=== PATIENT | male | born 1945 | race Caucasian/White ===

== ENCOUNTER 2018-03-21 06:05 | Inpatient (IN) ==
[2018-03-21] MEDS ORDERED: CeFAZolin Syr 2,000MG/20 ML 2,000 MG/20 ML SYRINGE IVPB ONE (06:24)
[2018-03-21] MEDS ORDERED: Dexamethasone 4 MG/ML VIAL ONE (06:30)
[2018-03-21] MEDS ORDERED: Lidocaine -MPF 2% 2 ML VIAL ONE (06:30)
[2018-03-21] MEDS ORDERED: Lidocaine -MPF 4% 5 ML AMPUL ONE (06:30)
[2018-03-21] MEDS ORDERED: Ringers Solution, Lactated 1,000 ML IVC SCH (06:30)
[2018-03-21] MEDS ORDERED: Neostigmine Methylsulfate 3 MG/3 ML SYRINGE ONE (06:30)
[2018-03-21] MEDS ORDERED: Ondansetron 4 MG/2 ML VIAL ONE (06:30)
[2018-03-21] MEDS ORDERED: *HR* Rocuronium Bromide 50 MG/5 ML VIAL ONE ×2 (06:30→09:19)
[2018-03-21] MEDS ORDERED: *HR* Succinylcholine 200 MG/10 ML VIAL IVP ONE (06:30)
[2018-03-21] MEDS ORDERED: *HR* Propofol 200 MG/20 ML VIAL IVP ONE (06:30)
[2018-03-21] MEDS ORDERED: *HR* FentaNYL (PF) 100 MCG/2 ML VIAL ONE (06:30)
[2018-03-21] MEDS ORDERED: Lidocaine/EPI 1:100k 1% 20 ML VIAL ONE (07:23)
[2018-03-21] MEDS ORDERED: Bupivacaine/EPI 1:200k 0.25%PF 30 ML VIAL ONE (07:23)
[2018-03-21] MEDS ORDERED: Bupivacaine/EPI 1:200k 0.5%PF 30 ML VIAL ONE (07:23)
[2018-03-21] MEDS ORDERED: Acetaminophen IV 1,000 MG/100 ML INFUS..BTL ONE (07:26)
--- NOTE | 2018-03-21 07:28 | History & Physical Report ---
Date of Encounter: 03/21/18 Time of Encounter: 07:20 24 Hour HP Update - Instructions Instructions: If the History and Physical is less than 30 days old and was completed prior to A.M. admission and or procedure and has NOT been updated on calendar day of procedure please complete this update prior to performing procedure. - Update Patient reports changes in Medical Condition: No Changes in examination, assessment, or condition: No Changes in Medication: No Preop tests/diagnostics Reviewed: Yes Surgery Remains Indicated: Yes Consent for Planned Operative Procedure(s) Verified: Yes - Pre-Operative Checklist Preoperative Checklist Indicated: Yes Prophylactic Antibiotic Ordered: Yes Home Medications Include Beta Albina: Yes Beta Albina Taken Today (Day of Surgery): Yes Beta Albina Taken Yesterday (Day Prior to Surgery): Yes Is VTE Prophylaxis Indicated?: Yes
[2018-03-21] MEDS ORDERED: Acetaminophen IV 1,000 MG/100 ML INFUS..BTL IVPB ONE (07:34)
--- NOTE | 2018-03-21 07:36 | Anesthesia Evaluation PreOp ---
Date of Encounter: 03/21/18 Time of Encounter: 07:35 - Past History Planned Operation: Exploratory celiotomy Cardiac History: NE (no stents required after cardiac cath (embolic phenomenon that resolved)), HTN, Hyperlipidemia Pulmonary History: Snore (possibility of sleep apnea based on screening criteria) TIP MENDER History: Denies Any Significant HX Other Medical History: Renal (ckd), Diabetes Type II (poor control; uses insulin), Thyroid, Other (BMI 38, glaucoma, hx rectal cancer 2007 s/p surgery (colostomy), radiation, chemo - in remission) Anesthesia History: Problems (nausea after longer surgeries) Alcohol Use: none Drug use: none Medications and Allergies Ascorbate Calcium [Vitamin C] 500 mg PO BID 04/24/15 [History] Doxycycline 100 mg PO BID 04/24/15 [History] Ferrous Sulfate [Iron] 325 mg PO BID 04/24/15 [History] Finasteride [Proscar] 5 mg PO DAILY 04/24/15 [History] Furosemide [Lasix] 40 mg PO BID 04/24/15 [History] Insulin ASPART [NovoLOG] 12 - 18 unit SQ TIDWM 04/24/15 [History] Levothyroxine Sodium [Tirosint] 150 mcg PO HS 04/24/15 [History] Metformin HCl [Fortamet] 1,000 mg PO BID 04/24/15 [History] Simvastatin [Zocor] 40 mg PO QPM 04/24/15 [History] Tamsulosin [Flomax] 0.4 mg PO DAILY 04/24/15 [History] Vitamin E (Dl,Tocopheryl Acet) [Vitamin E] 400 unit PO DAILY 04/24/15 [History] Aspirin [Lo-Dose Aspirin EC] 81 mg PO DAILY 04/25/16 [History] Insulin DETEMIR [Levemir Flextouch] 57 unit SQ HS 04/25/16 [History] Latanoprost [Xalatan] 1 drop BOTH EYES HS 04/25/16 [History] Calcium Carbonate [Calcium] 300 mg PO BID 06/23/17 [History] Providence-3/Dha/Epa/Fish Oil [Fish Oil 1,000 mg Softgel] 1 cap PO DAILY 06/23/17 [History] Fluocinonide 1 - 2 applic TP BID PRN 03/21/18 [History] Lisinopril [Zestril] 40 mg PO DAILY 03/21/18 [History] Metoprolol Tartrate 50 mg PO BID 03/21/18 [History] Timolol Maleate 0.5% 1 drop BOTH EYES DAILY 03/21/18 [History] Allergy/AdvReac Type Severity Reaction Status Date / Time Sulfa (Sulfonamide Allergy See Verified 03/21/18 06:53 Antibiotics) Comments sulfamethoxazole Allergy See Verified 03/21/18 06:53 [From Bactrim] Comments trimethoprim [From Bactrim] Allergy See Verified 03/21/18 06:53 Comments - Meds/Allergy Pre-op Review Medications Reviewed: Yes Allergies Reviewed: Yes Beta Blockers on Current Med List: Yes If Beta Blockers taken, Date/Time (Last Dose taken): 03-21-18 metoprolol 5 am Anesthesia Results - Labs Laboratory Tests 02/22/18 03/07/18 03/07/18 16:01 08:53 08:53 WBC 4.8 Hgb 11.8 L Hct 36.2 L Plt Count 217 Potassium 4.5 BUN 27 H Creatinine 1.40 H POC Creatinine 1.50 H POC Estimated GFR (eGFR) 46 L Est GFR ( Amer) > 60 Est GFR (Non-Af Amer) 50 L BUN/Creatinine Ratio 19 Est Mean Plasma Glucose Hemoglobin A1c 03/07/18 08:53 WBC Hgb Hct Plt Count Potassium BUN Creatinine POC Creatinine POC Estimated GFR (eGFR) Est GFR ( Amer) Est GFR (Non-Af Amer) BUN/Creatinine Ratio Est Mean Plasma Glucose 206 Hemoglobin A1c 8.8 H - Imaging EKG: report reviewed, image reviewed (SR) Anesthesia Exam Last Vital Signs Temp 98.0 F 03/21/18 06:27 Pulse 64 03/21/18 06:27 Resp 18 03/21/18 06:27 BP 131/68 03/21/18 06:27 Pulse Ox 96 03/21/18 06:27 Weight: 117 kg NPO (# of Hours): > 8 hrs - HEENT Pupil (Motor): Pupils equal, EOMI Mallampati: II Teeth: Poor dentition Oral Opening: Greater than 3 - TIP MENDER LOC: Oriented TIP MENDER Motor: Normal RUE, Normal LUE, Normal RLE, Normal LLE, Normal Face - Cardiac Rhythm: Regular Murmur: None - Pulmonary Breath Sounds: bilateral Clear Respiratory Effort: Symmetrical Anesthesia Assess/Plan ASA Score: 3 Level of consciousness: Cooperative Anesthetic Plan: General Monitoring Plan: Standard Monitors Recovery Plan: PACU
[2018-03-21] MEDS ORDERED: *HR* HYDROmorphone 2 MG/ML SYRINGE ONE (07:38)
[2018-03-21] MEDS ORDERED: *HR* PHENYLEPHRINE 1,000 MCG/10 ML SYRINGE IVP ONE (08:06)
[2018-03-21] MEDS ORDERED: EPHEDrine 50 MG/ML VIAL ONE (08:19)
[2018-03-21] MEDS ORDERED: *HR* Promethazine 25 MG/ML VIAL IVP PRN (08:23)
[2018-03-21] MEDS ORDERED: *HR* Labetalol 20 MG/4 ML SYRINGE IVP PRN (08:23)
[2018-03-21] MEDS: *HR* HYDROmorphone (PF) 1 MG/ML SYRINGE IVP PRN ×2 (11:08→11:13)
--- NOTE | 2018-03-21 11:42 | Anesthesia Evaluation Post Op ---
Date of Encounter: 03/21/18 Time of Encounter: 11:40 - Vital Signs Vital Signs: Selected Entries 03/21/18 11:26 Temperature 98.2 F Pulse Rate 63 Respiratory Rate 18 Blood Pressure 140/78 O2 Sat by Pulse Oximetry 96 - Lungs Lungs: Clear Ascult./Percussion - Airway Airway: Non-obstructed - Cardiovascular Regular Rate - Mental Status Mental Status: Alert & Oriented, Answers Appropriately - Nausea Vomiting Nausea Vomiting: Not Present - Hydration Hydration: Tolerates oral liquids - Discharge PostOp Status: Transfer Patient to floor
[2018-03-21] MEDS ORDERED: *HR* OxyCODONE Immed Rel 5 MG TABLET PO PRN (12:28)
--- NOTE | 2018-03-21 12:55 | Operative Note ---
Date of procedure: 03/21/18 Pre-op diagnosis: Large peristomal hernia left anterior abdominal wall Post-op diagnosis: same (Large complex peristomal hernia) Procedure: Exploratory celiotomy, lysis of adhesions, repair of peristomal hernia left anterior abdominal wall with 15 x 25 cm XenMatrix AB surgical gaft. Implants: 15 x 25 cm XenMatrix AB Srugical graft Complications: None apparent Anesthesia: GETA Local Anesthetics: 0.25% Sensorcaine HCL with Epinephrine 1:200,000 SubQ (cc) (20 mL) Surgeon: Idris Felix Was there an teaching assistant present: No Distributor Cleaner Other: AMARI Bar Estimated blood loss (cc): 25 IV fluids (cc): 1,200 Specimen: none Condition: stable Disposition: PACU Procedure in Detail: The patient was brought to the operating room where he was placed supine on the procedure table. The patient was appropriately identified to person and procedure. The accuracy of this information was confirmed by the patient and procedure team. The patient was then intubated and anesthetized under the supervision of Dr. Sharona Shelton. The abdomen was palpated under anesthesia. The peristomal hernia was readily apparent but only partially reduced. The abdomen was then prepped and draped in usual sterile fashion. A sterile Ioban drape was applied to the anterior abdominal wall to exclude the stoma and ostomy appliance left anterior abdominal wall. A midline incision was then made beginning just cephalad to the umbilicus extending to the pubic tubercle. The incision was extended through the subcutaneous tissue. Bleeding points were controlled electrocautery. The fascia was then divided in the midline and the abdomen entered atraumatically. There were multiple adhesions of bowel to the anterior abdominal wall as well as the peristomal fascia. These adhesions were sharply dissected. I was able to mobilize these adhesions without obvious bowel injury. The small bowel was reduced from the peristomal hernia. The end colostomy was healthy and patent. I selected a 15 x 25 cm XenMatrix AB Surgical Graft to complete the peristomal repair. I was able to encircle the end colostomy. An incision was placed in the surgical graft with a circular hole created centrally. This would allow me to pass the surgical graft into the abdomen, encircle the end colostomy and cover the peristomal hernia. The anterior abdominal wall was elevated to facilitate positioning of the surgical graft. Once this was accomplished, the incised flaps of the graft were approximated with interrupted 0 Vicryl suture. The surgical graft was secured to the anterior abdominal wall with 2 #1 Ethilon suture placed through and through the anterior abdominal wall. The sutures were secured with the rubber bolster in place. There hernia repair was palpably intact when examined from the intraperitoneal side. I also digitally examined the end colostomy/stoma verifying its patency. I was regowned and gloved to complete the procedure. The small bowel was examined from ligament of Treitz to the ileocecal valve and found to be intact. On was also grossly normal. The peritoneum was then closed with running interlocking 0 Vicryl. The abdominal wall was closed in the midline with interrupted [id number] 0 Vicryl. Several milliliters of 0.25% bupivacaine with 1-200,000 epinephrine was infiltrated into the fascia. The subcutaneous tissue was approximated with running 3-0 Vicryl. The skin edges were infiltrated with the bupivacaine with epinephrine solution and approximated with skin pb. A dry sterile dressing was applied. The patient was taken to recovery in stable condition. Needle, sponge, and instrument counts were correct at the close of case.
[2018-03-21] MEDS: Insulin LISPRO 300 UNITS/3 ML VIAL SQ SCH ×2 (18:04→18:26)
[2018-03-21] MEDS: Ringers Solution, Lactated 1,000 ML IVC SCH (18:22)
[2018-03-21] MEDS: *HR* Metformin 500 MG TABLET PO SCH (18:22)
[2018-03-21] MEDS: Furosemide 40 MG TABLET PO SCH (18:23)
[2018-03-21] MEDS: Acetaminophen 325 MG TABLET PO PRN (21:18)
[2018-03-21] MEDS: Insulin DETEMIR 100 UNIT/ML X5UNITS SQ SCH (21:19)
[2018-03-21] MEDS: Doxycycline 100 MG CAPSULE PO SCH (21:19)
[2018-03-21] MEDS: Metoprolol 100 MG TABLET PO SCH (21:19)
[2018-03-21] MEDS: Latanoprost 2.5 ML BOTTLE BOTH EYES SCH (21:20)
[2018-03-22] MEDS: Acetaminophen 325 MG TABLET PO PRN (05:02)
[2018-03-22] MEDS: Ringers Solution, Lactated 1,000 ML IVC SCH (05:03)
[2018-03-22 06:06] LABS: Basophils % 0.1 %; Hematocrit 35.3 % (37.5-50.1); Immature Granulocytes % 0.4 % (0-4); Lymphocytes # 0.7 K/mcL (0.6-4.6); Lymphocytes % 4.9 %; Mean Corpuscular Hemoglobin 31.1 pg (28.0-33.3); Mean Corpuscular Volume 91.5 fL (83.0-100.0); Mean Platelet Volume 9.8 fL (9.4-12.4); Monocytes # 1.1 K/mcL (0.0-1.3); Monocytes % 7.6 %; Neutrophils # 12.5 K/mcL (1.6-8.9); Platelet Count 212 K/mcL (140-400); Red Blood Count 3.86 M/mcL (4.19-5.50); Red Cell Distribution Width 12.9 % (11.5-14.5)
[2018-03-22 06:24] LABS: BUN/Creatinine Ratio 18 (6-26); Blood Urea Nitrogen 22 mg/dL (8-23); Calcium 8.8 mg/dL (8.6-10.3); Carbon Dioxide 27 mEq/L (23-29); Chloride 99 mEq/L (98-107); Glucose 276 mg/dL (70-105); Osmolality,Calculated 287 (280-300); Potassium 4.3 mEq/L (3.5-5.1); Sodium 132 mEq/L (136-145); eGFR For Non-African Americans 59 (> 60)
[2018-03-22] MEDS: Metoprolol 100 MG TABLET PO SCH ×2 (08:42→20:22)
[2018-03-22] MEDS: Doxycycline 100 MG CAPSULE PO SCH ×2 (08:42→20:22)
[2018-03-22] MEDS: *HR* Metformin 500 MG TABLET PO SCH ×2 (08:43→16:48)
[2018-03-22] MEDS: Lisinopril 20 MG TABLET PO SCH (08:43)
[2018-03-22] MEDS: Furosemide 40 MG TABLET PO SCH ×2 (08:43→16:48)
[2018-03-22] MEDS: Ondansetron 4 MG/2 ML VIAL IVP PRN ×2 (08:43→15:48)
[2018-03-22] MEDS: Aspirin Enteric Coated 81 MG Tablet PO SCH (08:43)
[2018-03-22] MEDS: Insulin LISPRO 300 UNITS/3 ML VIAL SQ SCH ×6 (08:44→23:58)
[2018-03-22] MEDS: Finasteride 5 MG TABLET PO SCH (08:44)
[2018-03-22] MEDS: *HR* OxyCODONE/APAP 5/325 TABLET PO PRN (12:46)
--- NOTE | 2018-03-22 18:03 | General Surgery Progress Note ---
Date of Encounter: 03/22/18 Time of Encounter: 17:20 Subjective Narrative: General Surgery POD #1 Patient feeling poorly - complaining of increased abdominal distention with pain, nausea and anorexia. Patient has passed flatus via the colostomy but no stool. Patient remains afebrile, currently 98.3, pulse 92-101, respirations 15-20, blood pressure stable 136/74-158/76. Lungs: Clear Cardiac: At present regular rate with no appreciable murmurs Abdomen: Distended, hypoactive bowel sounds. Healthy appearing stoma left lower anterior abdominal wall. Digitally patent, firm stool detected subfascially. Urine output: 3050 mL for calendar day 03/21/18; 1700 mL so far today Laboratories: WBC 14.3, neutrophils 12.5. Hemoglobin 12.0, hematocrit 35.3, platelet count 212. Sodium low at 132, potassium 4.3, BUN 22, creatinine 1.21 Accu-Cheks 249-327 Impression: Postoperative day #1, status post exploratory celiotomy with lysis of adhesions and repair of peristomal hernia with surgical graft (biologic) Patient is complaining abdominal distention and nausea. Likely postoperative ileus. Plan: Colostomy irrigation Continue to monitor for resolution of abdominal distention/pain, nausea. Recheck CBC in a.m. Objective Vital Signs - Last 8 Hours Temp Pulse Resp BP Pulse Ox 03/22/18 16:07 98.2 F 94 18 156/76 93 03/22/18 11:49 98.2 F 88 18 146/76 96 Intake and Output 03/22/18 03/22/18 03/22/18 07:59 15:59 23:59 Intake Total 1600 / 1600 360 / 360 Output Total 650 / 650 550 / 550 500 / 500 Balance 950 / 950 -190 / -190 -500 / -500 Intake: IV Fluids 1000 / 1000 Lactated Ringers 1,000 ML @ 75 1000 / 1000 mls/hr IVC .[id number] [facility] Rx#: [id number] Oral 600 / 600 360 / 360 Output: Stool 0 / 0 Catheter 650 / 650 550 / 550 500 / 500 Other: Meal Lunch Percent of Meal Consumed 5% Weight 121 kg Blood Glucose* 260 249 Patient Weight 03/22/18 23:59 Weight 121 kg - Labs 03/22/18 05:51 03/22/18 05:51 Diabetes panel 03/22/18 Range/Units 05:51 Sodium 132 L (136-145) mEq/L Potassium 4.3 (3.5-5.1) mEq/L Chloride 99 (98-107) mEq/L Carbon Dioxide 27 (23-29) mEq/L BUN 22 (8-23) mg/dL Creatinine 1.21 (0.70-1.30) mg/dL Glucose 276 H (70-105) mg/dL Calcium 8.8 (8.6-10.3) mg/dL Calcium panel 03/22/18 Range/Units 05:51 Calcium 8.8 (8.6-10.3) mg/dL Pituitary panel 03/22/18 Range/Units 05:51 Sodium 132 L (136-145) mEq/L Potassium 4.3 (3.5-5.1) mEq/L Chloride 99 (98-107) mEq/L Carbon Dioxide 27 (23-29) mEq/L BUN 22 (8-23) mg/dL Creatinine 1.21 (0.70-1.30) mg/dL Glucose 276 H (70-105) mg/dL Calcium 8.8 (8.6-10.3) mg/dL Adrenal panel 03/22/18 Range/Units 05:51 Sodium 132 L (136-145) mEq/L Potassium 4.3 (3.5-5.1) mEq/L Chloride 99 (98-107) mEq/L Carbon Dioxide 27 (23-29) mEq/L BUN 22 (8-23) mg/dL Creatinine 1.21 (0.70-1.30) mg/dL Glucose 276 H (70-105) mg/dL Calcium 8.8 (8.6-10.3) mg/dL - VTE Documentation of Mechanical Device: Intermittent pneumatic compression device Consult Discharge Plan - Plan Referrals: Spencer Quezada Jr, MD [Primary Care Provider] -
[2018-03-22] MEDS ORDERED: *HR* Dextrose 50 % in Water (Syg) 50 ML SYRINGE IVP PRN (18:04)
[2018-03-22] MEDS ORDERED: Dextrose Gel 15 GM/37.5 ML TUBE PO PRN (18:04)
[2018-03-22] MEDS ORDERED: Ringers Solution, Lactated 1,000 ML IVC SCH (18:06)
[2018-03-22] MEDS: Insulin DETEMIR 100 UNIT/ML X5UNITS SQ SCH (20:17)
[2018-03-22] MEDS: Latanoprost 2.5 ML BOTTLE BOTH EYES SCH (20:22)
[2018-03-22] MEDS: *HR* Promethazine 25 MG/ML VIAL IVP PRN (22:55)
[2018-03-23] MEDS: *HR* OxyCODONE/APAP 5/325 TABLET PO PRN (01:29)
[2018-03-23 04:45] LABS: Basophils % 0.1 %; Hematocrit 34.5 % (37.5-50.1); Hemoglobin 11.8 g/dL (12.9-16.9); Immature Granulocytes % 1.1 % (0-4); Lymphocytes # 0.6 K/mcL (0.6-4.6); Lymphocytes % 3.2 %; Mean Corpuscular HGB Conc 34.2 g/dL (31.6-35.5); Mean Corpuscular Hemoglobin 31.5 pg (28.0-33.3); Monocytes # 1.3 K/mcL (0.0-1.3); Neutrophils # 17.1 K/mcL (1.6-8.9); Platelet Count 207 K/mcL (140-400); Red Blood Count 3.75 M/mcL (4.19-5.50); Segmented Neutrophils % 88.6 %
[2018-03-23 05:03] LABS: BUN/Creatinine Ratio 13 (6-26); Blood Urea Nitrogen 17 mg/dL (8-23); Calcium 8.7 mg/dL (8.6-10.3); Carbon Dioxide 28 mEq/L (23-29); Chloride 94 mEq/L (98-107); Glucose 223 mg/dL (70-105); Osmolality,Calculated 280 (280-300); Potassium 4.2 mEq/L (3.5-5.1); Sodium 131 mEq/L (136-145); eGFR For Non-African Americans 55 (> 60)
[2018-03-23] MEDS: Insulin LISPRO 300 UNITS/3 ML VIAL SQ SCH ×8 (05:32→19:49)
[2018-03-23] MEDS: *HR* Metformin 500 MG TABLET PO SCH ×2 (08:29→17:52)
[2018-03-23] MEDS: Finasteride 5 MG TABLET PO SCH (08:33)
[2018-03-23] MEDS: Doxycycline 100 MG CAPSULE PO SCH ×2 (08:34→19:56)
[2018-03-23] MEDS: Aspirin Enteric Coated 81 MG Tablet PO SCH (08:34)
[2018-03-23] MEDS: Furosemide 40 MG TABLET PO SCH ×2 (08:34→17:52)
[2018-03-23] MEDS: Metoprolol 100 MG TABLET PO SCH ×2 (08:34→19:56)
[2018-03-23] MEDS: Lisinopril 20 MG TABLET PO SCH (08:34)
[2018-03-23] MEDS: Ondansetron 4 MG/2 ML VIAL IVP PRN ×3 (10:14→19:45)
--- NOTE | 2018-03-23 11:08 | General Surgery Progress Note ---
Date of Encounter: 03/23/18 Time of Encounter: 10:50 Subjective Patient reports: feels better, no flatus, no bowel movement Narrative: General Surgery - POD #2 Patient experienced significant abdominal distention and nausea overnight. Placement of NG tube yielded approximately 1300 mL of green bilious fluid with significant decrease in abdominal distention and nausea. Colostomy irrigation was completed without difficulty. Fluid is described to have infused readily and then expelled. Minimal stool accompanied this expelled fluid. Maximum temperature through the night 99.7 with pulse 113; currently afebrile at 98.4, pulse 83, respirations 16, blood pressure 147/78 Lungs: Clear Abdomen: Soft, nontender. Active bowel sounds. Colostomy appears intact and healthy. Minimal liquid stool in the ostomy appliance. Midline incision intact, clean and dry Active bowel sounds Urine output: Approximately 600 mL so far today Accu-Cheks: 223 this morning Laboratories: Leukocytosis increased to 19.3 with 17.1 neutrophils; hemoglobin 11.8, hematocrit 34.5, platelet count 207,000. Electrolytes notable for hyponatremia at 131, hypochloremia at 94; potassium 4.2, BUN 17, creatinine 1.28. Impression: Postoperative day #2, status post exploratory celiotomy with lysis of adhesions and repair of peristomal hernia with surgical graft (biologic) Postoperative abdominal distention with nausea likely due to surgery and transient bowel malfunction/ileus. Improved with NG decompression. Plan: Clamp NG - (if increased abdominal distention, pain, nausea or vomiting Maintain nothing by mouth until bowel function has returned to normal Objective Vital Signs - Last 8 Hours Temp Pulse Resp BP Pulse Ox 03/23/18 10:44 98.4 F 83 16 147/78 92 03/23/18 08:15 92 03/23/18 06:57 98.9 F 106 15 150/81 92 Intake and Output 03/22/18 03/23/18 03/23/18 23:59 07:59 15:59 Intake Total 0 / 0 Output Total 500 / 500 1949 / 1950 400 / 400 Balance -500 / -500 -1950 / -1950 -400 / -400 Intake: Oral 0 / 0 Output: Urine 0 / 0 Stool 0 / 0 0 / 0 Gastric Tube Lavage Amount 1200 / 1200 Left Nare 1200 / 1200 Catheter 500 / 500 750 / 750 150 / 150 Urethral (Banegas) 600 / 600 Gastric Drainage 0 / 0 250 / 250 Other: Weight 119.4 kg Blood Glucose* 194 213 Patient Weight 03/23/18 23:59 Weight 119.4 kg - Labs 03/23/18 04:19 03/23/18 04:19 Diabetes panel 03/23/18 Range/Units 04:19 Sodium 131 L (136-145) mEq/L Potassium 4.2 (3.5-5.1) mEq/L Chloride 94 L (98-107) mEq/L Carbon Dioxide 28 (23-29) mEq/L BUN 17 (8-23) mg/dL Creatinine 1.28 (0.70-1.30) mg/dL Glucose 223 H (70-105) mg/dL Calcium 8.7 (8.6-10.3) mg/dL Calcium panel 03/23/18 Range/Units 04:19 Calcium 8.7 (8.6-10.3) mg/dL Pituitary panel 03/23/18 Range/Units 04:19 Sodium 131 L (136-145) mEq/L Potassium 4.2 (3.5-5.1) mEq/L Chloride 94 L (98-107) mEq/L Carbon Dioxide 28 (23-29) mEq/L BUN 17 (8-23) mg/dL Creatinine 1.28 (0.70-1.30) mg/dL Glucose 223 H (70-105) mg/dL Calcium 8.7 (8.6-10.3) mg/dL Adrenal panel 03/23/18 Range/Units 04:19 Sodium 131 L (136-145) mEq/L Potassium 4.2 (3.5-5.1) mEq/L Chloride 94 L (98-107) mEq/L Carbon Dioxide 28 (23-29) mEq/L BUN 17 (8-23) mg/dL Creatinine 1.28 (0.70-1.30) mg/dL Glucose 223 H (70-105) mg/dL Calcium 8.7 (8.6-10.3) mg/dL - VTE Documentation of Mechanical Device: Intermittent pneumatic compression device Consult Discharge Plan - Plan Referrals: Idris Felix MD [Non-Partnered Physician] - Spencer Quezada Jr, MD [Primary Care Provider] -
[2018-03-23] MEDS: D5% in 0.45% NACL 1,000 ML IVC SCH (13:08)
[2018-03-23] MEDS: Latanoprost 2.5 ML BOTTLE BOTH EYES SCH (20:10)
[2018-03-23] MEDS: Insulin DETEMIR 100 UNIT/ML X5UNITS SQ SCH (20:11)
[2018-03-24] MEDS: Ondansetron 4 MG/2 ML VIAL IVP PRN
[2018-03-24] MEDS: Insulin LISPRO 300 UNITS/3 ML VIAL SQ SCH ×9 (01:00→20:27)
[2018-03-24] MEDS: *HR* Promethazine 25 MG/ML VIAL IVP PRN (02:28)
[2018-03-24] MEDS: D5% in 0.45% NACL 1,000 ML IVC SCH ×2 (02:34→17:53)
[2018-03-24 04:27] LABS: Basophils % 0.1 %; Eosinophils % 0.1 %; Hematocrit 33.7 % (37.5-50.1); Hemoglobin 11.1 g/dL (12.9-16.9); Immature Granulocytes % 0.6 % (0-4); Lymphocytes # 0.6 K/mcL (0.6-4.6); Lymphocytes % 3.4 %; Mean Corpuscular HGB Conc 32.9 g/dL (31.6-35.5); Mean Corpuscular Hemoglobin 30.5 pg (28.0-33.3); Mean Corpuscular Volume 92.6 fL (83.0-100.0); Mean Platelet Volume 9.9 fL (9.4-12.4); Monocytes # 0.9 K/mcL (0.0-1.3); Monocytes % 5.5 %; Neutrophils # 14.6 K/mcL (1.6-8.9); Platelet Count 209 K/mcL (140-400); Red Blood Count 3.64 M/mcL (4.19-5.50); Red Cell Distribution Width 13.1 % (11.5-14.5); Segmented Neutrophils % 90.3 %
[2018-03-24] MEDS: *HR* Metformin 500 MG TABLET PO SCH ×2 (08:26→17:54)
[2018-03-24] MEDS: Lisinopril 20 MG TABLET PO SCH (09:12)
[2018-03-24] MEDS: Aspirin Enteric Coated 81 MG Tablet PO SCH (09:12)
[2018-03-24] MEDS: Furosemide 40 MG TABLET PO SCH ×2 (09:12→17:54)
[2018-03-24] MEDS: Finasteride 5 MG TABLET PO SCH (09:12)
[2018-03-24] MEDS: Metoprolol 100 MG TABLET PO SCH ×2 (09:12→20:27)
[2018-03-24] MEDS: Doxycycline 100 MG CAPSULE PO SCH ×2 (09:12→20:28)
--- NOTE | 2018-03-24 10:26 | General Surgery Progress Note ---
Date of Encounter: 03/24/18 Time of Encounter: 10:21 Subjective Patient reports: feels better, flatus Narrative: General Surgery - POD #3 Patient feeling significantly improved, he describes passing a great deal flatus with significant decompression of his abdomen and resolution of his nausea. Patient is tolerating NG clamping. NG removed. The patient remains afebrile, currently 98.4, pulse currently 96 but as high as 111; respirations 15 and nonlabored, blood pressure 151/72 Lungs: Clear Abdomen distended, nontender with active bowel sounds. Midline incision intact, clean and dry Colostomy remains healthy. Small amount of liquid brown stool is evident within the ostomy appliance Urine output: Proximally 600 mL in the last 24 hours. Laboratories: Leukocytosis improved to 16.1, neutrophils improved to 14.6; hemoglobin 11.1, hematocrit 33.7. Impression: Postoperative day #3, status post exploratory celiotomy with repair of peristomal hernia using surgical graft. Postoperative abdominal distention with nausea improved Bowel function appears to be returning. Plan: Remove NG, allow clear liquids - advance diet if no recurrent or worsening abdominal distention, cramping abdominal pain or nausea Remove Banegas catheter (placed at the time of surgery) Repeat labs in AM Objective Vital Signs - Last 8 Hours Temp Pulse Resp BP Pulse Ox 03/24/18 09:41 95 03/24/18 08:59 96 151/72 95 03/24/18 07:27 98.4 F 111 15 97 03/24/18 04:08 98.3 F 98 17 148/73 92 Intake and Output 03/23/18 03/24/18 03/24/18 23:59 07:59 15:59 Intake Total 0 / 0 1000 / 1000 180 / 180 Output Total 325 / 325 1275 / 1275 100 / 100 Balance -325 / -325 -275 / -275 80 / 80 Intake: IV Fluids 1000 / 1000 D5% And 0.45% Nacl 1000 Ml Bag 1000 / 1000 1,000 ML @ 75 mls/hr IVC . [id number] [facility] Rx#:[id number] Oral 0 / 0 0 / 0 180 / 180 Output: Urine 0 / 0 0 / 0 0 / 0 Stool 0 / 0 100 / 100 Gastric Tube Lavage Amount 100 / 100 Left Nare 100 / 100 Catheter 175 / 175 500 / 500 0 / 0 Urethral (Banegas) 0 / 0 Gastric Drainage 150 / 150 675 / 675 0 / 0 Other: Meal npo Stool Consistency liquid Stool Color Brown Weight 119.1 kg Blood Glucose* 220 225 Patient Weight 03/24/18 23:59 Weight 119.1 kg - Labs 03/24/18 03:43 03/23/18 04:19 - VTE Documentation of Mechanical Device: Intermittent pneumatic compression device Consult Discharge Plan - Plan Referrals: Idris Felix MD [Non-Partnered Physician] - Spencer Quezada Jr, MD [Primary Care Provider] -
[2018-03-24] MEDS: Insulin DETEMIR 100 UNIT/ML X5UNITS SQ SCH (20:27)
[2018-03-24] MEDS: Latanoprost 2.5 ML BOTTLE BOTH EYES SCH (20:27)
[2018-03-24] MEDS: Acetaminophen 325 MG TABLET PO PRN (20:27)
[2018-03-25] MEDS: Insulin LISPRO 300 UNITS/3 ML VIAL SQ SCH ×9 (00:22→20:40)
[2018-03-25 05:56] LABS: Basophils % 0.1 %; Eosinophils # 0.4 K/mcL (0.0-0.6); Eosinophils % 3.4 %; Immature Granulocytes % 0.4 % (0-4); Lymphocytes # 0.7 K/mcL (0.6-4.6); Lymphocytes % 6.4 %; Mean Corpuscular HGB Conc 33.3 g/dL (31.6-35.5); Mean Corpuscular Volume 92.9 fL (83.0-100.0); Mean Platelet Volume 9.7 fL (9.4-12.4); Monocytes # 0.8 K/mcL (0.0-1.3); Neutrophils # 8.4 K/mcL (1.6-8.9); Platelet Count 200 K/mcL (140-400); Red Blood Count 3.23 M/mcL (4.19-5.50); Red Cell Distribution Width 12.9 % (11.5-14.5); Segmented Neutrophils % 81.7 %
[2018-03-25 06:15] LABS: BUN/Creatinine Ratio 20 (6-26); Blood Urea Nitrogen 24 mg/dL (8-23); Calcium 7.8 mg/dL (8.6-10.3); Carbon Dioxide 26 mEq/L (23-29); Chloride 93 mEq/L (98-107); Glucose 126 mg/dL (70-105); Osmolality,Calculated 274 (280-300); Sodium 129 mEq/L (136-145); eGFR For Non-African Americans > 60 (> 60)
[2018-03-25] MEDS: Aspirin Enteric Coated 81 MG Tablet PO SCH (09:17)
[2018-03-25] MEDS: *HR* Metformin 500 MG TABLET PO SCH ×2 (09:17→18:16)
[2018-03-25] MEDS: Lisinopril 20 MG TABLET PO SCH (09:17)
[2018-03-25] MEDS: Metoprolol 100 MG TABLET PO SCH ×2 (09:17→20:39)
[2018-03-25] MEDS: Doxycycline 100 MG CAPSULE PO SCH ×2 (09:17→20:39)
[2018-03-25] MEDS: Finasteride 5 MG TABLET PO SCH (09:17)
[2018-03-25] MEDS: Furosemide 40 MG TABLET PO SCH ×2 (09:18→18:17)
--- NOTE | 2018-03-25 09:53 | General Surgery Progress Note ---
Date of Encounter: 03/25/18 Time of Encounter: 09:45 Subjective Patient reports: feels better, tolerating liquids well, flatus Narrative: General Surgery - POD #4 Patient feeling well, voicing no complaints. Continues to pass flatus. Tolerating clear liquids with no increase in nausea or abdominal distention. Tolerating NG removed Patient remains afebrile, hemodynamically stable- currently 98.3, pulse 65, (no tachycardia the last 24 hours) respiratory rate 15, blood pressure 136/78 Lungs: Clear, no abdominal pain on deep inspiration Abdomen: Soft, nontender. Distention significantly decreased in the last 24 hours. Midline incision intact clean and dry. Urine output: 800 mL for calendar day 03/24/18; 675 mL so far today. Banegas catheter removed yesterday and patient voiding without difficulty Labs: Leukocytosis resolved, 10.3, neutrophils within normal limits 8.4; hemoglobin 10.0, hematocrit 30.0. Electrolytes notable for sodium of 139, potassium 3.0. BUN has increased to 24, creatinine stable at 1.18. Impression: Postoperative day #4, status post exploratory celiotomy, lysis of adhesions with repair of peristomal hernia with surgical graft. Acceptable status. Abdominal distention and nausea resolved. Patient passing flatus but yet to move his bowels. Hyponatremia without obvious sequela; Hypokalemia Plan: Discontinue IV fluids Advance diet to full liquid Potassium supplements to correct hypokalemia. Objective Vital Signs - Last 8 Hours Temp Pulse Resp BP Pulse Ox 03/25/18 07:28 98.3 F 65 15 136/78 92 03/25/18 03:48 98.2 F 75 14 116/65 93 Intake and Output 03/24/18 03/25/18 03/25/18 23:59 07:59 15:59 Intake Total 2480 / 2480 800 / 800 350 / 350 Output Total 625 / 625 675 / 675 0 / 0 Balance 1855 / 1855 125 / 125 350 / 350 Intake: IV Fluids 400 / 400 D5% And 0.45% Nacl 1000 Ml Bag 400 / 400 1,000 ML @ 75 mls/hr IVC . [id number] [facility] Rx#:[id number] Oral 2080 / 2080 800 / 800 350 / 350 Output: Urine 625 / 625 675 / 675 0 / 0 Other: Meal Dinner Weight 117.9 kg Blood Glucose* 146 144 Patient Weight 03/25/18 23:59 Weight 117.9 kg - Labs 03/25/18 05:40 03/25/18 05:40 Diabetes panel 03/25/18 Range/Units 05:40 Sodium 129 L (136-145) mEq/L Potassium 3.0 L (3.5-5.1) mEq/L Chloride 93 L (98-107) mEq/L Carbon Dioxide 26 (23-29) mEq/L BUN 24 H (8-23) mg/dL Creatinine 1.18 (0.70-1.30) mg/dL Glucose 126 H (70-105) mg/dL Calcium 7.8 L (8.6-10.3) mg/dL Calcium panel 03/25/18 Range/Units 05:40 Calcium 7.8 L (8.6-10.3) mg/dL Pituitary panel 03/25/18 Range/Units 05:40 Sodium 129 L (136-145) mEq/L Potassium 3.0 L (3.5-5.1) mEq/L Chloride 93 L (98-107) mEq/L Carbon Dioxide 26 (23-29) mEq/L BUN 24 H (8-23) mg/dL Creatinine 1.18 (0.70-1.30) mg/dL Glucose 126 H (70-105) mg/dL Calcium 7.8 L (8.6-10.3) mg/dL Adrenal panel 03/25/18 Range/Units 05:40 Sodium 129 L (136-145) mEq/L Potassium 3.0 L (3.5-5.1) mEq/L Chloride 93 L (98-107) mEq/L Carbon Dioxide 26 (23-29) mEq/L BUN 24 H (8-23) mg/dL Creatinine 1.18 (0.70-1.30) mg/dL Glucose 126 H (70-105) mg/dL Calcium 7.8 L (8.6-10.3) mg/dL - VTE Documentation of Mechanical Device: Intermittent pneumatic compression device Consult Discharge Plan - Plan Referrals: Idris Felix MD [Non-Partnered Physician] - Spencer Quezada Jr, MD [Primary Care Provider] -
[2018-03-25] MEDS: D5% in 0.45% NACL 1,000 ML IVC SCH (10:29)
[2018-03-25] MEDS: Latanoprost 2.5 ML BOTTLE BOTH EYES SCH (20:39)
[2018-03-25] MEDS: Insulin DETEMIR 100 UNIT/ML X5UNITS SQ SCH (20:40)
[2018-03-26] MEDS: Insulin LISPRO 300 UNITS/3 ML VIAL SQ SCH ×8 (00:19→21:44)
[2018-03-26 05:03] LABS: Basophils % 0.1 %; Eosinophils # 0.4 K/mcL (0.0-0.6); Eosinophils % 4.3 %; Hematocrit 30.4 % (37.5-50.1); Immature Granulocytes % 0.8 % (0-4); Lymphocytes # 0.7 K/mcL (0.6-4.6); Lymphocytes % 6.5 %; Mean Corpuscular HGB Conc 32.9 g/dL (31.6-35.5); Mean Corpuscular Volume 94.1 fL (83.0-100.0); Mean Platelet Volume 9.6 fL (9.4-12.4); Monocytes # 0.9 K/mcL (0.0-1.3); Monocytes % 9.2 %; Platelet Count 208 K/mcL (140-400); Red Blood Count 3.23 M/mcL (4.19-5.50); Red Cell Distribution Width 12.8 % (11.5-14.5); Segmented Neutrophils % 79.1 %
[2018-03-26 05:16] LABS: BUN/Creatinine Ratio 18 (6-26); Blood Urea Nitrogen 21 mg/dL (8-23); Calcium 7.6 mg/dL (8.6-10.3); Carbon Dioxide 29 mEq/L (23-29); Chloride 95 mEq/L (98-107); Glucose 118 mg/dL (70-105); Osmolality,Calculated 278 (280-300); Potassium 3.7 mEq/L (3.5-5.1); Sodium 132 mEq/L (136-145); eGFR For Non-African Americans > 60 (> 60)
[2018-03-26] MEDS: Lisinopril 20 MG TABLET PO SCH (08:56)
[2018-03-26] MEDS: Doxycycline 100 MG CAPSULE PO SCH ×2 (08:56→21:29)
[2018-03-26] MEDS: *HR* Metformin 500 MG TABLET PO SCH ×2 (08:56→16:55)
[2018-03-26] MEDS: Finasteride 5 MG TABLET PO SCH (08:56)
[2018-03-26] MEDS: Metoprolol 100 MG TABLET PO SCH ×2 (08:57→21:29)
[2018-03-26] MEDS: Aspirin Enteric Coated 81 MG Tablet PO SCH (08:58)
[2018-03-26] MEDS: Furosemide 40 MG TABLET PO SCH ×2 (08:58→16:55)
--- NOTE | 2018-03-26 12:06 | General Surgery Progress Note ---
Date of Encounter: 03/26/18 Time of Encounter: 12:01 Subjective Patient reports: feels better Narrative: General Surgery - POD #5 Patient feeling well, voicing no complaints. Tolerating regular diet with no increased abdominal pain or recurrent nausea Patient remains afebrile, 98.1; hemodynamically stable with pulse 72-80, respirations 16, blood pressure 134/74. SPO2 on room air 96% Lungs: Clear bilaterally Abdomen: Soft, nontender. Midline incision intact, clean and dry. Healthy colostomy stoma left lower anterior abdominal wall - marino beginning to pass stool. Continues to pass copious flatus Laboratories: White count stable at 10.1, hemoglobin 10.0, hematocrit 30.4; differential within normal limits. Platelet count 208,000 Electrolytes notable for sodium improving to 132, potassium has corrected to 3.7, chloride 95. BUN 21, creatinine 1.16 Blood sugars 118 & 126; Accu-Cheks: Currently 144-151. Impression: Postoperative day #5, status post exploratory celiotomy with lysis of adhesions and repair of peristomal hernia with surgical graft Postoperative abdominal distention, cramping, and nausea resolved Bowel activity improved and returning to normal. Hypokalemia corrected Hyponatremia - improved to 132, no detected sequela Plan: Advance to regular (diabetic) diet Reduce potassium to 40 mEq by mouth once daily Reduce Accu-Cheks to before meals and at bedtime Objective Vital Signs - Last 8 Hours Temp Pulse Resp BP Pulse Ox 03/26/18 10:51 98.1 F 72 16 134/74 96 03/26/18 07:27 98 03/26/18 05:39 98.0 F 80 16 147/72 98 Intake and Output 03/25/18 03/26/18 03/26/18 23:59 07:59 15:59 Intake Total 420 / 420 230 / 230 480 / 480 Output Total 350 / 350 250 / 250 400 / 400 Balance 70 / 70 -20 / -20 80 / 80 Intake: Oral 420 / 420 230 / 230 480 / 480 Output: Urine 350 / 350 250 / 250 400 / 400 Other: Meal clears Breakfast Percent of Meal Consumed 100% Stool Size Large Stool Consistency liquid formed Stool Characteristics Normal for Patient Stool Color Brown # Voids 1 # Bowel Movements 1 Weight 117.8 kg Blood Glucose* 145 129 169 Patient Weight 03/26/18 23:59 Weight 117.8 kg - Labs 03/26/18 04:32 03/26/18 04:32 Diabetes panel 03/26/18 Range/Units 04:32 Sodium 132 L (136-145) mEq/L Potassium 3.7 (3.5-5.1) mEq/L Chloride 95 L (98-107) mEq/L Carbon Dioxide 29 (23-29) mEq/L BUN 21 (8-23) mg/dL Creatinine 1.16 (0.70-1.30) mg/dL Glucose 118 H (70-105) mg/dL Calcium 7.6 L (8.6-10.3) mg/dL Calcium panel 03/26/18 Range/Units 04:32 Calcium 7.6 L (8.6-10.3) mg/dL Pituitary panel 03/26/18 Range/Units 04:32 Sodium 132 L (136-145) mEq/L Potassium 3.7 (3.5-5.1) mEq/L Chloride 95 L (98-107) mEq/L Carbon Dioxide 29 (23-29) mEq/L BUN 21 (8-23) mg/dL Creatinine 1.16 (0.70-1.30) mg/dL Glucose 118 H (70-105) mg/dL Calcium 7.6 L (8.6-10.3) mg/dL Adrenal panel 03/26/18 Range/Units 04:32 Sodium 132 L (136-145) mEq/L Potassium 3.7 (3.5-5.1) mEq/L Chloride 95 L (98-107) mEq/L Carbon Dioxide 29 (23-29) mEq/L BUN 21 (8-23) mg/dL Creatinine 1.16 (0.70-1.30) mg/dL Glucose 118 H (70-105) mg/dL Calcium 7.6 L (8.6-10.3) mg/dL - VTE Documentation of Mechanical Device: Intermittent pneumatic compression device Consult Discharge Plan - Plan Referrals: Idris Felix MD [Non-Partnered Physician] - Spencer Quezada Jr, MD [Primary Care Provider] -
[2018-03-26] MEDS: Latanoprost 2.5 ML BOTTLE BOTH EYES SCH (21:29)
[2018-03-26] MEDS: Insulin DETEMIR 100 UNIT/ML X5UNITS SQ SCH (21:29)
[2018-03-27] MEDS: Furosemide 40 MG TABLET PO SCH (07:37)
[2018-03-27] MEDS: Doxycycline 100 MG CAPSULE PO SCH (07:37)
[2018-03-27] MEDS: Finasteride 5 MG TABLET PO SCH (07:37)
[2018-03-27] MEDS: Lisinopril 20 MG TABLET PO SCH (07:37)
[2018-03-27] MEDS: *HR* Metformin 500 MG TABLET PO SCH (07:38)
[2018-03-27] MEDS: Metoprolol 100 MG TABLET PO SCH (07:38)
[2018-03-27] MEDS: Aspirin Enteric Coated 81 MG Tablet PO SCH (07:38)
[2018-03-27] MEDS: Insulin LISPRO 300 UNITS/3 ML VIAL SQ SCH ×4 (07:40→12:26)
--- NOTE | 2018-03-27 10:53 | General Surgery Progress Note ---
Date of Encounter: 03/27/18 Time of Encounter: 10:53 Subjective Patient reports: no new complaints, feels better, tolerating a regular diet, bowel movement Narrative: General Surgery - POD #6 Progress Note / Discharge Summary Patient feeling well, voicing no complaints. AFeb, hemodynamically stable. Tolerating regular (diabetic) diet without nausea, abdominal distention or pain. Colostomy functioning appropriately Lungs Clear to auscultation, no abd pain with inspiration Cardica : regular rate, no appreciable murmurs Abdomen: soft, non tender. Active bowel sounds. Midline incision intact and healing well. Colostomy functioning - soft brown stool in the appliance Impression: 72 yo, POD #6 s/p explor celiotomy, ANATOLIY with repair peristoma hernia with surgical (biologic) mesh. Acceptable post op status. Post op nausea, abdominal distention resolved with return bowel function hypokalemia - transient and resolved with potassium supplementation Diabetes - stable / controlled obesity hypertension history rectal cancer - s/p APR Hospital course - patient admitted 03/21/2018 following surgery to address a large parastoma hernia. Post op course patient experienced abdominal distention and nausea most likely related to delayed return of colon function exacerbated by hyponatremia and hypokalemia. The bowel function slowly returned to normal. The hyponatremia improved and the hypokalemia was reversed. The patient was discharged home in good condition, 03/27/2018. At time of discharge the patient was tolerating diet, no further complaints nausea. No abdominal pain. Instructions patient may be as active as tolerated; no lifting more than 20 pounds patient may shower, wash incisions with soap and water patient to resume home meds Tylenol, ibuprofen, etc as needed for pain Outpatient follow up, 01/31/2018. Objective Vital Signs - Last 8 Hours Temp Pulse Resp BP Pulse Ox 03/27/18 07:30 94 03/27/18 06:28 98 F 81 15 148/70 94 03/27/18 04:15 97.6 F 79 14 148/72 96 Intake and Output 03/26/18 03/27/18 03/27/18 23:59 07:59 15:59 Intake Total 120 / 120 0 / 0 Output Total 150 / 150 300 / 300 Balance -30 / -30 -300 / -300 Intake: Oral 120 / 120 0 / 0 Output: Urine 150 / 150 300 / 300 Other: Meal Dinner Percent of Meal Consumed 50% Stool Size Large Stool Consistency loose liquid Stool Color Brown Yellow Weight 117.6 kg Blood Glucose* 120 80 Patient Weight 03/27/18 23:59 Weight 117.6 kg - Labs 03/26/18 04:32 03/26/18 04:32 - VTE Documentation of Mechanical Device: Intermittent pneumatic compression device Consult Discharge Plan - Plan Referrals: Idris Felix MD [Non-Partnered Physician] - Spencer Quezada Jr, MD [Primary Care Provider] -
[2018-03-27 11:33] VITALS: BP 123/64
--- NOTE | 2018-03-27 14:58 | Discharge Summary ---
Outpatient Proc Discharge Plan - Plan Additional Instructions: regular (diabetic) diet activities as tolerated, no lifting more than 20 # patient may shower, wash incision with soap and water Patient to resume home meds Tylenol, ibuprofen etc as needed for pain Outpatient follow up 04/02/2018. Home Medications: Ascorbate Calcium [Vitamin C] 500 mg PO BID 04/24/15 [History] Doxycycline 100 mg PO BID 04/24/15 [History] Ferrous Sulfate [Iron] 325 mg PO BID 04/24/15 [History] Finasteride [Proscar] 5 mg PO DAILY 04/24/15 [History] Furosemide [Lasix] 40 mg PO BID 04/24/15 [History] Insulin ASPART [NovoLOG] 12 - 18 unit SQ TIDWM 04/24/15 [History] Levothyroxine Sodium [Tirosint] 150 mcg PO HS 04/24/15 [History] Simvastatin [Zocor] 40 mg PO QPM 04/24/15 [History] Tamsulosin [Flomax] 0.4 mg PO DAILY 04/24/15 [History] Vitamin E (Dl,Tocopheryl Acet) [Vitamin E] 400 unit PO DAILY 04/24/15 [History] Aspirin [Lo-Dose Aspirin EC] 81 mg PO DAILY 04/25/16 [History] Insulin DETEMIR [Levemir Flextouch] 57 unit SQ HS 04/25/16 [History] Latanoprost [Xalatan] 1 drop BOTH EYES HS 04/25/16 [History] Calcium Carbonate [Calcium] 300 mg PO BID 06/23/17 [History] [place]-3/Dha/Epa/Fish Oil [Fish Oil 1,000 mg Softgel] 1 cap PO DAILY 06/23/17 [History] Fluocinonide 1 - 2 applic TP BID PRN 03/21/18 [History] Lisinopril [Zestril] 40 mg PO DAILY 03/21/18 [History] Metformin HCl 1,000 mg PO BID 03/21/18 [History] Metoprolol Tartrate 50 mg PO BID 03/21/18 [History] Timolol Maleate 0.5% 1 drop BOTH EYES DAILY 03/21/18 [History] Acetaminophen [Tylenol] 650 mg PO Q6HR PRN tablet 03/27/18 [Rx]
== END 2018-03-27 15:28 | disposition home or self-care (01) | DRG 354 ==
LOC: SAMDAY 06:05 → 3ANU 12:40
PROVIDERS: ADMIT Surgery; ATTEND Surgery

== ENCOUNTER 2018-05-09 09:08 | Inpatient (IN) ==
[2018-05-09] MEDS ORDERED: Albuterol 2.5 MG/3 ML NEBULIZER IH ONE (09:34)
[2018-05-09] MEDS ORDERED: Piperacillin/Tazobactam 3.375 GM in 0.9 % Sodium Chloride Mini Bag 100 ML IVPB ONE (09:36)
[2018-05-09] MEDS ORDERED: Ringers Solution, Lactated 1,000 ML IVC SCH ×2 (09:45→10:00)
--- NOTE | 2018-05-09 09:47 | Anesthesia Evaluation PreOp ---
Date of Encounter: 05/09/18 Time of Encounter: 09:44 - Past History Planned Operation: explor celiotomy, revise stoma Cardiac History: SD (no stents), HTN, Hyperlipidemia, Other (CAD) Pulmonary History: KARIME Dx MANAGER STATE History: Other (Glaucoma) Other Medical History: Diabetes Type II (poorly controlled), Thyroid Anesthesia History: No Prior Anesthetic Complications, Past Anesthesia (elbow, knee, hip, spine, TURP, hernia, colostomy) Alcohol Use: none Drug use: none Medications and Allergies Ascorbate Calcium [Vitamin C] 500 mg PO BID 04/24/15 [History] Doxycycline 100 mg PO BID 04/24/15 [History] Ferrous Sulfate [Iron] 325 mg PO BID 04/24/15 [History] Finasteride [Proscar] 5 mg PO DAILY 04/24/15 [History] Furosemide [Lasix] 40 mg PO BID 04/24/15 [History] Insulin ASPART [NovoLOG] 12 - 18 unit SQ TIDWM 04/24/15 [History] Levothyroxine Sodium [Tirosint] 150 mcg PO HS 04/24/15 [History] Simvastatin [Zocor] 40 mg PO QPM 04/24/15 [History] Tamsulosin [Flomax] 0.4 mg PO DAILY 04/24/15 [History] Vitamin E (Dl,Tocopheryl Acet) [Vitamin E] 400 unit PO DAILY 04/24/15 [History] Aspirin [Lo-Dose Aspirin EC] 81 mg PO DAILY 04/25/16 [History] Insulin DETEMIR [Levemir Flextouch] 57 unit SQ HS 04/25/16 [History] Latanoprost [Xalatan] 1 drop BOTH EYES HS 04/25/16 [History] Calcium Carbonate [Calcium] 300 mg PO BID 06/23/17 [History] [place]-3/Dha/Epa/Fish Oil [Fish Oil 1,000 mg Softgel] 1 cap PO DAILY 06/23/17 [History] Fluocinonide 1 - 2 applic TP BID PRN 03/21/18 [History] Lisinopril [Zestril] 40 mg PO DAILY 03/21/18 [History] Metformin HCl 1,000 mg PO BID 03/21/18 [History] Metoprolol Tartrate 50 mg PO BID 03/21/18 [History] Timolol Maleate 0.5% 1 drop BOTH EYES DAILY 03/21/18 [History] Acetaminophen [Tylenol] 650 mg PO Q6HR PRN tablet 03/27/18 [Rx] Promethazine/Dextromethorphan [Promethazine-Dm Syrup] 5 ml PO Q6HR PRN #120 ml 04/05/18 [Rx] predniSONE [PredniSONE] 20 mg PO DAILY #18 tablet 04/05/18 [Rx] Allergy/AdvReac Type Severity Reaction Status Date / Time Sulfa (Sulfonamide Allergy See Verified 05/02/18 13:41 Antibiotics) Comments sulfamethoxazole Allergy See Verified 05/02/18 13:41 [From Bactrim] Comments trimethoprim [From Bactrim] Allergy See Verified 05/02/18 13:41 Comments - Meds/Allergy Pre-op Review Medications Reviewed: Yes Allergies Reviewed: Yes Beta Blockers on Current Med List: Yes (metoprolol) If Beta Blockers taken, Date/Time (Last Dose taken): today 0600 Anesthesia Results - Labs Laboratory Tests 04/19/18 04/19/18 05/02/18 09:14 09:14 13:45 Hgb 10.3 L Hct 33.1 L Plt Count 237 Sodium 137 Potassium 4.4 BUN 27 H Creatinine 1.31 H Anesthesia Exam Selected Entries 05/09/18 09:32 Blood Glucose* 203 H Temperature 97.4 F L Pulse Rate 82 Respiratory Rate 18 Blood Pressure 121/57 O2 Sat by Pulse Oximetry 96 Weight: 113kg BMI 38 - HEENT Pupil (Motor): EOMI Mallampati: III Teeth: Poor dentition Oral Opening: Greater than 3 - MANAGER STATE LOC: Oriented MANAGER STATE Motor: Normal RUE, Normal LUE, Normal RLE, Normal LLE, Normal Face MANAGER STATE Sensory: Normal: RUE, LUE, RLE, LLE, Face - Cardiac Rhythm: Regular Murmur: None - Pulmonary Breath Sounds: bilateral Clear Respiratory Effort: Symmetrical Anesthesia Assess/Plan ASA Score: 3 Level of consciousness: Cooperative, Oriented, Tranquil Anesthetic Plan: General Monitoring Plan: Standard Monitors Recovery Plan: PACU
[2018-05-09] MEDS ORDERED: *HR* OxyCODONE/APAP 5/325 TABLET PO PRN (09:57)
[2018-05-09] MEDS ORDERED: *HR* HYDROmorphone (PF) 1 MG/ML SYRINGE IVP PRN (09:58)
[2018-05-09] MEDS ORDERED: Acetaminophen IV 1,000 MG/100 ML INFUS..BTL IVPB ONE (09:59)
[2018-05-09] MEDS ORDERED: *HR* Promethazine 25 MG/ML VIAL IVP PRN ×2 (09:59→17:54)
--- NOTE | 2018-05-09 10:12 | History & Physical Report ---
Date of Encounter: 05/09/18 Time of Encounter: 10:11 24 Hour HP Update - Instructions Instructions: If the History and Physical is less than 30 days old and was completed prior to A.M. admission and or procedure and has NOT been updated on calendar day of procedure please complete this update prior to performing procedure. - Update Patient reports changes in Medical Condition: No Changes in examination, assessment, or condition: No Changes in Medication: No Preop tests/diagnostics Reviewed: Yes Surgery Remains Indicated: Yes Consent for Planned Operative Procedure(s) Verified: Yes - Pre-Operative Checklist Preoperative Checklist Indicated: Yes Prophylactic Antibiotic Ordered: Yes Home Medications Include Beta Albina: Yes Beta Albina Taken Today (Day of Surgery): Yes Beta Albina Taken Yesterday (Day Prior to Surgery): Yes Is VTE Prophylaxis Indicated?: Yes
[2018-05-09] MEDS ORDERED: *HR* Midazolam HCl 2 MG/2 ML VIAL ONE (10:44)
[2018-05-09] MEDS ORDERED: Ondansetron 4 MG/2 ML VIAL ONE (10:51)
[2018-05-09] MEDS ORDERED: *HR* Rocuronium Bromide 50 MG/5 ML VIAL ONE ×2 (10:51→14:19)
[2018-05-09] MEDS ORDERED: *HR* FentaNYL (PF) 100 MCG/2 ML VIAL ONE (10:51)
[2018-05-09] MEDS ORDERED: Dexamethasone 4 MG/ML VIAL ONE (10:51)
[2018-05-09] MEDS ORDERED: *HR* Propofol 200 MG/20 ML VIAL IVP ONE (10:51)
[2018-05-09] MEDS ORDERED: Bupivacaine/EPI 1:200k 0.25%PF 30 ML VIAL ONE (11:12)
[2018-05-09] MEDS ORDERED: KETAMINE HCL 50 MG/ML SYRINGE IV ONE (12:14)
[2018-05-09] MEDS ORDERED: EPHEDrine 50 MG/ML VIAL ONE (12:24)
[2018-05-09] MEDS ORDERED: *HR* HYDROMORPHONE 2 MG/ML VIAL ONE (14:01)
[2018-05-09] MEDS ORDERED: Neostigmine Methylsulfate 3 MG/3 ML SYRINGE ONE (15:36)
[2018-05-09] MEDS ORDERED: Ringers Solution, Lactated 500 ML IVC ONE (16:57)
--- NOTE | 2018-05-09 17:01 | Operative Note ---
Date of procedure: 05/09/18 Pre-op diagnosis: Peristomal hernia with incarcerated small bowel Post-op diagnosis: same Procedure: Exploratory celiotomy, lysis of adhesions with removal of previous mesh prosthesis, revision and re-location end colostomy with closure of ventral incisional hernia (with 13 cm x [address] Mesh; placement JSEIKA drain in previous end colostomy site Implants: 13 cm x [address] mesh Complications: None apparent Anesthesia: GETA Surgeon: Idris Felix Was there an assistant professor of german present: No Estimated blood loss (cc): 200 IV fluids (cc): 2,000 Specimen: mesh prosthesis and revised end colostomy Condition: stable Disposition: PACU Procedure in Detail: The patient was brought to the operating room where he was placed supine on the procedure table. The patient was appropriately identified as to person and procedure. The accuracy of this information was confirmed by the patient and procedure team. The patient was then intubated and anesthetized under the super vision of Dr. John Paul Long. An OG tube was placed by anesthesia, a Banegas catheter was inserted by nursing. The abdomen was prepped and draped in the usual sterile fashion. The end colostomy in the left lower anterior abdominal wall was prepped a second time after removing the appliance. An Ioban drape was placed on the anterior abdominal wall. This would effectively seal the colostomy until it could be mobilized. A midline incision was then made from the epigastrium to the pubic tubercle. Incision was extended to the fascia. Bleeding points were controlled with electrocautery. In the upper abdomen, the fascia was incised and the abdomen entered atraumatically. The incision was extended towards the umbilicus. There we encountered several loops of bowel adherent to the anterior abdominal wall. These loops were mobilized by sharp dissection and the fascial incision was extended to the pubic tubercle. Exposure was facilitated by a self-retaining Omni tract retractor. There were multiple loops of small bowel that had become entrapped in the peristomal hernia despite previous repair with XenMatrix AB surgical graft. An extended lysis of adhesions was necessary to remove to XenMatrix AB surgical graft and mobilize the end colostomy. Eventually I was able to exteriorize the end colostomy through a midline incision. The end colostomy was resected with a Ethicon 75 mm linear stapler. This effectively closed the end colostomy as well as resected the portion that had traversed the anterior abdominal wall. Additional lysis of adhesions was necessary to mobilize the descending colon to the distal transverse colon. The extended lysis of adhesions endured approximately 150 minutes. Once the bowel was sufficiently mobilized, a colostomy site was selected in the right upper quadrant of the anterior abdominal wall. A circular incision was made in the skin and extended through the subcutaneous tissue. Bleeding points were controlled with electrocautery. The anterior rectus sheath was incised transversely. The right rectus abdominis muscle was split in the direction of its fibers. The posterior rectus sheath was incised transversely. The end colostomy was exteriorized through this new stoma. The bowel was secured to the anterior abdominal wall with a noncrushing bowel clamp. The the fascia of the peristomal hernia was then closed with interrupted [id number] 0 Vicryl. This fascial closure was reinforced by placing a Bard 13 x 25 cm PhasixST mesh to the infra fascial surfaces of the anterior abdominal wall. The mesh prosthesis was anchored to the anterior abdominal wall with using an Absorba-tacker. A 7 mm flat Raymon-Camargo drain was placed in the cutaneous space of the prior stoma left lower anterior abdominal wall. The drain was placed in the subcutaneous defect and exited through a separate stab wound on the anterior abdominal wall. It was secured in place with a 3-0 silk suture ligature. The subcutaneous tissues of this stoma were approximated with interrupted 3-0 Vicryl. The skin edges were left open. The small bowel was examined from the ligament of Treitz to the ileocecal valve and was determined to be intact. The peritoneum was closed with running interlocking 0 Vicryl. The fascia of the midline incision was closed with interrupted [id number] 0 Vicryl. The subcutaneous tissue was approximated with running 3-0 Vicryl. The skin edges approximated with pb. The colostomy, now located in the right upper anterior abdominal wall, was matured. The staple line was excised. 4 quadrant interrupted vertical mattress 3-0 chromic was placed followed by interrupted 3-0 chromic to complete the mucocutaneous approximation. The ostomy appliance was placed on the anterior abdominal wall. The midline incision and former stoma site was dressed with dry sterile gauze and tape. The patient was taken to recovery in stable condition. Needle, sponge, and instrument counts were correct at the close of the case.
[2018-05-09] MEDS ORDERED: *HR* OxyCODONE Immed Rel 5 MG TABLET PO PRN (17:15)
--- NOTE | 2018-05-09 17:53 | Anesthesia Evaluation Post Op ---
Date of Encounter: 05/09/18 Time of Encounter: 17:40 - Vital Signs Vital Signs: Vital Signs/O2 Sat/Glucose, Most Current Temp Pulse Resp BP Pulse Ox 05/09/18 17:32 99.2 F 95 14 107/75 94 05/09/18 17:22 99.7 F H 90 16 139/69 92 05/09/18 17:12 93 16 130/68 93 05/09/18 17:02 98 18 140/69 94 05/09/18 16:52 98.6 F 82 16 146/72 97 - Lungs Lungs: Clear Ascult./Percussion - Airway Airway: Non-obstructed - Cardiovascular Baseline Rhythm - Mental Status Mental Status: Alert & Oriented, Answers Appropriately - Pain Pain Scale: 6 Pain Scale used: Numeric (1 - 10) - Nausea Vomiting Nausea Vomiting: Not Present - Hydration Hydration: Ice chips, Banegas catheter - Discharge PostOp Status: Transfer Patient to floor Anes Supervising Prov Stmt: PT seene/evaluated, VSS And has met criteria for discharge to home. - MD Jerald
[2018-05-09] MEDS ORDERED: Ondansetron 4 MG/2 ML VIAL IVP PRN (17:54)
[2018-05-09] MEDS ORDERED: *HR* HYDROmorphone 20 MG/20 ML PCA IVC PRN (17:54)
[2018-05-09] MEDS ORDERED: *HR* Dextrose 50 % in Water (Syg) 50 ML SYRINGE IVP PRN (17:54)
[2018-05-09] MEDS ORDERED: Dextrose Gel 15 GM/37.5 ML TUBE PO PRN (17:54)
[2018-05-09] MEDS ORDERED: D5% in Water 1,000 ML IVC PRN (17:54)
[2018-05-09] MEDS: Insulin LISPRO 300 UNITS/3 ML VIAL SQ SCH ×2 (19:43→20:59)
[2018-05-09] MEDS: Metoprolol 100 MG TABLET PO SCH (20:55)
[2018-05-09] MEDS: Doxycycline 100 MG CAPSULE PO SCH (20:55)
[2018-05-09] MEDS ORDERED: Doxycycline 100 MG CAPSULE PO SCH (21:00)
[2018-05-09] MEDS: Piperacillin/Tazobactam 3.375 GM in 0.9 % Sodium Chloride Mini Bag 100 ML IVPB SCH (21:01)
[2018-05-09] MEDS: Latanoprost 2.5 ML BOTTLE BOTH EYES SCH (21:04)
[2018-05-09] MEDS: Ringers Solution, Lactated 1,000 ML IVC SCH (22:24)
[2018-05-10] MEDS: Insulin LISPRO 300 UNITS/3 ML VIAL SQ SCH ×6 (00:34→20:55)
[2018-05-10 04:57] LABS: Basophils % 0.1 %; Hematocrit 34.7 % (37.5-50.1); Hemoglobin 11.4 g/dL (12.9-16.9); Immature Granulocytes % 0.4 % (0-4); Lymphocytes # 0.9 K/mcL (0.6-4.6); Lymphocytes % 6.2 %; Mean Corpuscular HGB Conc 32.9 g/dL (31.6-35.5); Mean Corpuscular Hemoglobin 30.8 pg (28.0-33.3); Mean Corpuscular Volume 93.8 fL (83.0-100.0); Mean Platelet Volume 9.6 fL (9.4-12.4); Monocytes # 1.4 K/mcL (0.0-1.3); Monocytes % 9.7 %; Neutrophils # 11.9 K/mcL (1.6-8.9); Platelet Count 288 K/mcL (140-400); Segmented Neutrophils % 83.6 %
[2018-05-10] MEDS: Piperacillin/Tazobactam 3.375 GM in 0.9 % Sodium Chloride Mini Bag 100 ML IVPB SCH ×3 (06:00→20:50)
[2018-05-10 09:04] LABS: Calcium 8.6 mg/dL (8.6-10.3); Potassium 4.7 mEq/L (3.5-5.1)
[2018-05-10] MEDS: Doxycycline 100 MG CAPSULE PO SCH ×2 (09:20→20:49)
[2018-05-10] MEDS: Ringers Solution, Lactated 1,000 ML IVC SCH (11:50)
[2018-05-10] MEDS: Metoprolol 100 MG TABLET PO SCH ×2 (11:52→20:48)
--- NOTE | 2018-05-10 20:24 | General Surgery Progress Note ---
Date of Encounter: 05/10/18 Time of Encounter: 20:15 Subjective Narrative: General Surgery - POD #1 This is a delayed note The patient was seen and examined approx 1330 today Patient is awake and alert; complaining of incisional pain that is controlled with BUSINESS TECHNOLOGY PROFESSOR Dilaudid. The patient remains afebrile, pulse is elevated ranging 102 - 105; respiratory rate 16, blood pressure 108/66 Lungs: Clear with moderate Speier Tory effort Cardiac: Rapid rate but no detected murmurs Abdomen: Soft, moderate tenderness as expected predominantly around the incision. The incision appears intact without fascial defects. The dressing was removed. The previous stoma site, left lower anterior abdominal wall, appears to be healing well. JESIKA in the subcutaneous space - approximately 75 mL serous sanguinous fluid Stoma in the right upper anterior abdominal wall is dark but appears viable; no passage of flatus or BM. Laboratories: WBC 14.3, neutrophils 11.9; hemoglobin 11.4, hematocrit 34.7. Platelets 288,000. Sodium 136, potassium 4.7, BUN 23, creatinine 1.68 (prior creatinine 1.31) Accu-Cheks 199-203 Impression: Postoperative day #1, status post revision and relocation and colost chikis from left lower anterior abdominal wall to the right upper anterior abdominal wall with repair of peristomal hernia with mesh prosthesis Acceptable status Plan: Fluid bolus Increase sliding-scale coverage Monitor I's and O's, patient uses Lasix at home. He may require periodic administration of furosemide while hospitalized Encourage incentive spirometry and activity out of bed. Objective Vital Signs - Last 8 Hours Temp Pulse Resp BP Pulse Ox 05/10/18 19:36 98.5 F 116 14 124/70 95 05/10/18 15:00 98.0 F 117 16 123/79 93 Intake and Output 05/10/18 05/10/18 05/10/18 07:59 15:59 23:59 Intake Total 100 / 100 1100 / 1100 100 / 100 Output Total 600 / 600 175 / 175 450 / 450 Balance -500 / -500 925 / 925 -350 / -350 Intake: IV Fluids 100 / 100 1100 / 1100 100 / 100 Lactated Ringers 1,000 ML @ 75 1000 / 1000 mls/hr IVC .[id number] [facility] Rx#: [id number] Zosyn 3.375 GM In 0.9 % Sodium 100 / 100 100 / 100 100 / 100 Chloride (Mini-Bag +) 100 ML @ 25 mls/hr IVPB Q8H [facility] Rx#: [id number] Oral 0 / 0 Output: Catheter 450 / 450 175 / 175 450 / 450 Wound Drainage 150 / 150 Left Lower Abdomen 150 / 150 Other: Meal NPO NPO # Bowel Movements 0 Weight 116.8 kg Blood Glucose* 225 248 Patient Weight 05/10/18 23:59 Weight 116.8 kg - Labs 05/10/18 04:22 05/10/18 04:22 Diabetes panel 05/10/18 Range/Units 04:22 Sodium 136 (136-145) mEq/L Potassium 4.7 (3.5-5.1) mEq/L Chloride 104 (98-107) mEq/L Carbon Dioxide 25 (23-29) mEq/L BUN 23 (8-23) mg/dL Creatinine 1.68 H (0.70-1.30) mg/dL Glucose 233 H (70-105) mg/dL Calcium 8.6 (8.6-10.3) mg/dL Calcium panel 05/10/18 Range/Units 04:22 Calcium 8.6 (8.6-10.3) mg/dL Pituitary panel 05/10/18 Range/Units 04:22 Sodium 136 (136-145) mEq/L Potassium 4.7 (3.5-5.1) mEq/L Chloride 104 (98-107) mEq/L Carbon Dioxide 25 (23-29) mEq/L BUN 23 (8-23) mg/dL Creatinine 1.68 H (0.70-1.30) mg/dL Glucose 233 H (70-105) mg/dL Calcium 8.6 (8.6-10.3) mg/dL Adrenal panel 05/10/18 Range/Units 04:22 Sodium 136 (136-145) mEq/L Potassium 4.7 (3.5-5.1) mEq/L Chloride 104 (98-107) mEq/L Carbon Dioxide 25 (23-29) mEq/L BUN 23 (8-23) mg/dL Creatinine 1.68 H (0.70-1.30) mg/dL Glucose 233 H (70-105) mg/dL Calcium 8.6 (8.6-10.3) mg/dL Consult Discharge Plan - Plan Referrals: Idrsi Felix MD [Non-Partnered Physician] - Spencer Quezada Jr, MD [Primary Care Provider] -
[2018-05-10] MEDS ORDERED: Insulin LISPRO 300 UNITS/3 ML VIAL SQ SCH (20:26)
[2018-05-10] MEDS ORDERED: 0.9 % Sodium Chloride 250 ML IVC ONE (20:26)
[2018-05-10] MEDS: Latanoprost 2.5 ML BOTTLE BOTH EYES SCH (20:56)
[2018-05-11] MEDS: Insulin LISPRO 300 UNITS/3 ML VIAL SQ SCH ×6 (00:22→20:35)
[2018-05-11] MEDS: Ringers Solution, Lactated 1,000 ML IVC SCH ×2 (00:25→10:02)
[2018-05-11] MEDS: Piperacillin/Tazobactam 3.375 GM in 0.9 % Sodium Chloride Mini Bag 100 ML IVPB SCH ×3 (05:34→20:34)
[2018-05-11 05:44] LABS: Eosinophils % 0.1 %
[2018-05-11 05:49] LABS: Basophils % 0.2 %; Hematocrit 30.2 % (37.5-50.1); Hemoglobin 9.9 g/dL (12.9-16.9); Immature Granulocytes % 0.7 % (0-4); Immature Platelets 2.2 % (1.1-6.1); Lymphocytes # 0.8 K/mcL (0.6-4.6); Lymphocytes % 5.4 %; Mean Corpuscular HGB Conc 32.8 g/dL (31.6-35.5); Mean Corpuscular Hemoglobin 30.9 pg (28.0-33.3); Mean Corpuscular Volume 94.4 fL (83.0-100.0); Mean Platelet Volume 9.7 fL (9.4-12.4); Monocytes # 1.4 K/mcL (0.0-1.3); Monocytes % 8.9 %; Neutrophils # 13.2 K/mcL (1.6-8.9); Platelet Count 232 K/mcL (140-400); Red Cell Distribution Width 14.2 % (11.5-14.5); Segmented Neutrophils % 84.7 %
[2018-05-11 06:05] LABS: Calcium 8.7 mg/dL (8.6-10.3); Magnesium 1.8 mg/dL (1.6-2.6); Phosphorous 3.4 mg/dL (2.7-4.5); Potassium 4.4 mEq/L (3.5-5.1)
[2018-05-11] MEDS: Metoprolol 100 MG TABLET PO SCH ×2 (08:11→20:34)
[2018-05-11] MEDS: Doxycycline 100 MG CAPSULE PO SCH ×2 (08:11→20:34)
[2018-05-11] MEDS ORDERED: *HR* HYDROmorphone 20 MG/20 ML PCA IVC PRN (12:55)
[2018-05-11] MEDS ORDERED: Furosemide 20 MG/2 ML VIAL IVP ONE (12:59)
--- NOTE | 2018-05-11 13:09 | General Surgery Progress Note ---
Date of Encounter: 05/11/18 Time of Encounter: 13:00 Subjective Patient reports: feels better Narrative: General Surgery - POD #2 Patient feeling well, minimal pain which is well controlled with INTERNAL CARVER Dilaudid. Afebrile, heart rate 84-99 (yesterday 105-117); respiratory rate 16-17; blood pressure 133/75. Lungs: Clear; SPO2 on 2 L/m nasal cannula 97% Abdomen: Soft, minimally tender. Active bowel sounds but no passage of flatus or BM through the new stoma right upper quadrant Midline incision appears intact, clean and dry JESIKA - left lower quadrant/prior stoma site - approximately 150 mL serosanguineous fluid in the last 24 hours Urine output: 1075 mL in the last 24 hours. Accu-Cheks 202-253; on high sliding-scale coverage. Labs: WBC has increased to 15.6, neutrophils 13.2; hemoglobin 9.9 with hematocrit 30.2, platelet count 232,000 Sodium 134, potassium 4.4, chloride 101. BUN increased to 31, creatinine 1.83; phosphorus 3.4, magnesium 1.8 Impression: Postoperative day #2 - status post revision/relocation of end colostomy from left lower anterior abdominal wall to right upper due to large peristomal hernia containing multiple loops of small bowel. The peristomal hernia was closed after relocation of the colostomy and repaired with mesh prosthesis. Good pain control with INTERNAL CARVER Dilaudid. Acceptable postoperative status. Will allow clear liquids. Anemia - hemoglobin 9.9/hematocrit 30.2 - partially due to acute blood loss during surgery; also due to dilution Patient routinely on furosemide at home - will order furosemide 20 mg IV push today Diabetes: Blood sugar/Accu-Cheks running high. Add Levemir 15 mg daily at bedtime Impaired renal function - possible DERRICK - continue to monitor. Chronic osteomyelitis - on doxycycline Objective Vital Signs - Last 8 Hours Temp Pulse Resp BP Pulse Ox 05/11/18 10:52 98.1 F 84 17 133/75 97 05/11/18 06:53 98.1 F 99 16 136/76 95 Intake and Output 05/10/18 05/11/18 05/11/18 23:59 07:59 15:59 Intake Total 350 / 350 1130 / 1130 1100 / 1100 Output Total 450 / 450 690 / 690 220 / 220 Balance -100 / -100 440 / 440 880 / 880 Intake: IV Fluids 350 / 350 1100 / 1100 1100 / 1100 0.9 % Sodium Chloride 250 ML @ 250 / 250 500 mls/hr IVC .Q30M [facility] Rx#: [id number] Lactated Ringers 1,000 ML @ 100 1000 / 1000 1000 / 1000 mls/hr IVC .Q10H [facility] Rx#: [id number] Zosyn 3.375 GM In 0.9 % Sodium 100 / 100 100 / 100 100 / 100 Chloride (Mini-Bag +) 100 ML @ 25 mls/hr IVPB Q8H [facility] Rx#: [id number] Oral 0 / 0 30 / 30 Output: Catheter 450 / 450 550 / 550 200 / 200 Wound Drainage 140 / 140 20 / 20 Left Lower Abdomen 140 / 140 20 / 20 Other: Meal NPO # Bowel Movements 0 0 0 Weight 117.5 kg Blood Glucose* 235 253 216 Patient Weight 05/11/18 23:59 Weight 117.5 kg - Labs 05/11/18 05:09 05/11/18 05:09 Diabetes panel 05/11/18 Range/Units 05:09 Sodium 134 L (136-145) mEq/L Potassium 4.4 (3.5-5.1) mEq/L Chloride 101 (98-107) mEq/L Carbon Dioxide 23 (23-29) mEq/L BUN 31 H (8-23) mg/dL Creatinine 1.83 H (0.70-1.30) mg/dL Glucose 253 H (70-105) mg/dL Calcium 8.7 (8.6-10.3) mg/dL Calcium panel 05/11/18 Range/Units 05:09 Calcium 8.7 (8.6-10.3) mg/dL Phosphorus 3.4 (2.7-4.5) mg/dL Pituitary panel 05/11/18 Range/Units 05:09 Sodium 134 L (136-145) mEq/L Potassium 4.4 (3.5-5.1) mEq/L Chloride 101 (98-107) mEq/L Carbon Dioxide 23 (23-29) mEq/L BUN 31 H (8-23) mg/dL Creatinine 1.83 H (0.70-1.30) mg/dL Glucose 253 H (70-105) mg/dL Calcium 8.7 (8.6-10.3) mg/dL Adrenal panel 05/11/18 Range/Units 05:09 Sodium 134 L (136-145) mEq/L Potassium 4.4 (3.5-5.1) mEq/L Chloride 101 (98-107) mEq/L Carbon Dioxide 23 (23-29) mEq/L BUN 31 H (8-23) mg/dL Creatinine 1.83 H (0.70-1.30) mg/dL Glucose 253 H (70-105) mg/dL Calcium 8.7 (8.6-10.3) mg/dL Consult Discharge Plan - Plan Referrals: Idris Felix MD [Non-Partnered Physician] - Spencer Quezada Jr, MD [Primary Care Provider] -
[2018-05-11] MEDS: Insulin DETEMIR 100 UNIT/ML X5UNITS SQ SCH ×2 (14:11→20:36)
[2018-05-11] MEDS: D5% in 0.45% NACL 1,000 ML IVC SCH (14:16)
[2018-05-11] MEDS: Latanoprost 2.5 ML BOTTLE BOTH EYES SCH (20:36)
[2018-05-12] MEDS: Insulin LISPRO 300 UNITS/3 ML VIAL SQ SCH ×7 (00:12→23:40)
[2018-05-12 03:38] LABS: Basophils % 0.1 %; Eosinophils # 0.1 K/mcL (0.0-0.6); Eosinophils % 0.7 %; Hemoglobin 8.6 g/dL (12.9-16.9); Immature Granulocytes % 0.4 % (0-4); Lymphocytes # 0.7 K/mcL (0.6-4.6); Mean Corpuscular HGB Conc 31.9 g/dL (31.6-35.5); Mean Corpuscular Hemoglobin 30.6 pg (28.0-33.3); Mean Corpuscular Volume 96.1 fL (83.0-100.0); Mean Platelet Volume 10.2 fL (9.4-12.4); Monocytes # 0.8 K/mcL (0.0-1.3); Monocytes % 6.9 %; Neutrophils # 9.4 K/mcL (1.6-8.9); Platelet Count 184 K/mcL (140-400); Red Blood Count 2.81 M/mcL (4.19-5.50); Red Cell Distribution Width 14.2 % (11.5-14.5); Segmented Neutrophils % 85.9 %
[2018-05-12 03:57] LABS: BUN/Creatinine Ratio 20 (6-26); Blood Urea Nitrogen 27 mg/dL (8-23); Calcium 8.6 mg/dL (8.6-10.3); Carbon Dioxide 23 mEq/L (23-29); Chloride 103 mEq/L (98-107); Glucose 198 mg/dL (70-105); Osmolality,Calculated 293 (280-300); Sodium 136 mEq/L (136-145); eGFR For Non-African Americans 53 (> 60)
[2018-05-12] MEDS: Piperacillin/Tazobactam 3.375 GM in 0.9 % Sodium Chloride Mini Bag 100 ML IVPB SCH (04:17)
[2018-05-12] MEDS: D5% in 0.45% NACL 1,000 ML IVC SCH ×3 (04:17→20:40)
[2018-05-12] MEDS: Metoprolol 100 MG TABLET PO SCH ×2 (09:59→20:30)
[2018-05-12] MEDS: Doxycycline 100 MG CAPSULE PO SCH ×2 (09:59→20:30)
--- NOTE | 2018-05-12 11:10 | General Surgery Progress Note ---
Date of Encounter: 05/12/18 Time of Encounter: 11:03 Subjective Patient reports: no new complaints, flatus Narrative: General Surgery - POD #3 Patient feeling well, voicing no complaints. Abdominal/incisional pain well controlled with INK MAKER Dilaudid. patient remains afebrile, currently 97.9, pulse 86-106, respiratory rate 16 and 18, unlabored; blood pressure 163/80. Lungs: Clear, SPO2 on 2 L/min nasal cannula 92-96%. No abdominal pain and deep inspiration Cardiac: Rate irregular but without obvious murmur Abdomen: Soft, minimal incisional tenderness. Active bowel sounds. Patient describes copious passage of flatus. Stoma is dark but appears viable; digital examination demonstrates the stoma to be widely patent. Banegas/urine output - approximately 2650 mL in the last 24 hours Laboratories: WBC is returned normal, 11.0; neutrophils reduced to 9.4. Hemoglobin 8.6 with hematocrit 27.2 - likely dilution Electrolytes remained stable and within normal limits; BUN has improved to 27, creatinine improved to 1.33. eGFR imrpoved to 53 Accu-Cheks improved from a high of 253-190. Impression: Postoperative day #3, status post revision location colostomy from left lower quadrant to right upper quadrant along with repair of peristomal hernia with mesh prosthesis. Acceptable postoperative status with return of bowel function Plan: Allow full liquid diet Resume home meds Increase levemir to BID and monitor accuchecks reduce fluids as oral intake increases discontinue IV ATB Objective Vital Signs - Last 8 Hours Temp Pulse Resp BP Pulse Ox 05/12/18 07:01 97.9 F 106 16 163/80 92 05/12/18 03:53 97.4 F L 86 18 142/74 96 Intake and Output 05/11/18 05/12/18 05/12/18 23:59 07:59 15:59 Intake Total 1220 / 1220 1300 / 1300 905 / 905 Output Total 1930 / 1930 100 / 100 65 / 65 Balance -710 / -710 1200 / 1200 840 / 840 Intake: IV Fluids 500 / 500 1100 / 1100 405 / 405 D5% And 0.45% Nacl 1000 Ml Bag 1000 / 1000 305 / 305 1,000 ML @ 75 mls/hr IVC . [id number] [facility] Rx#:[id number] Lactated Ringers 1,000 ML @ 100 400 / 400 mls/hr IVC .Q10H [facility] Rx#: [id number] Zosyn 3.375 GM In 0.9 % Sodium 100 / 100 100 / 100 100 / 100 Chloride (Mini-Bag +) 100 ML @ 25 mls/hr IVPB Q8H [facility] Rx#: [id number] Oral 720 / 720 200 / 200 500 / 500 Output: Stool 0 / 0 Catheter 1900 / 1900 100 / 100 Urethral (Banegas) 550 / 550 Wound Drainage Left Lower Abdomen Other: Meal Dinner # Bowel Movements 0 Weight 117.9 kg Blood Glucose* 217 187 181 Patient Weight 05/12/18 23:59 Weight 117.9 kg - Labs 05/12/18 03:05 05/12/18 03:05 Diabetes panel 05/12/18 Range/Units 03:05 Sodium 136 (136-145) mEq/L Potassium 4.0 (3.5-5.1) mEq/L Chloride 103 (98-107) mEq/L Carbon Dioxide 23 (23-29) mEq/L BUN 27 H (8-23) mg/dL Creatinine 1.33 H (0.70-1.30) mg/dL Glucose 198 H (70-105) mg/dL Calcium 8.6 (8.6-10.3) mg/dL Calcium panel 05/12/18 Range/Units 03:05 Calcium 8.6 (8.6-10.3) mg/dL Pituitary panel 05/12/18 Range/Units 03:05 Sodium 136 (136-145) mEq/L Potassium 4.0 (3.5-5.1) mEq/L Chloride 103 (98-107) mEq/L Carbon Dioxide 23 (23-29) mEq/L BUN 27 H (8-23) mg/dL Creatinine 1.33 H (0.70-1.30) mg/dL Glucose 198 H (70-105) mg/dL Calcium 8.6 (8.6-10.3) mg/dL Adrenal panel 05/12/18 Range/Units 03:05 Sodium 136 (136-145) mEq/L Potassium 4.0 (3.5-5.1) mEq/L Chloride 103 (98-107) mEq/L Carbon Dioxide 23 (23-29) mEq/L BUN 27 H (8-23) mg/dL Creatinine 1.33 H (0.70-1.30) mg/dL Glucose 198 H (70-105) mg/dL Calcium 8.6 (8.6-10.3) mg/dL Consult Discharge Plan - Plan Referrals: Idris Felix MD [Non-Partnered Physician] - Spencer Quezada Jr, MD [Primary Care Provider] -
[2018-05-12] MEDS: Furosemide 40 MG TABLET PO SCH (11:26)
[2018-05-12] MEDS: Insulin DETEMIR 100 UNIT/ML X5UNITS SQ SCH ×2 (12:35→20:30)
[2018-05-12] MEDS: *HR* Metformin 500 MG TABLET PO SCH (16:21)
[2018-05-12] MEDS: Latanoprost 2.5 ML BOTTLE BOTH EYES SCH (20:32)
[2018-05-13] MEDS: Insulin LISPRO 300 UNITS/3 ML VIAL SQ SCH ×5 (04:33→20:42)
[2018-05-13] MEDS: Lisinopril 20 MG TABLET PO SCH (08:15)
[2018-05-13] MEDS: *HR* Metformin 500 MG TABLET PO SCH ×2 (08:15→16:27)
[2018-05-13] MEDS: Doxycycline 100 MG CAPSULE PO SCH ×2 (08:16→20:40)
[2018-05-13] MEDS: Metoprolol 100 MG TABLET PO SCH ×2 (08:16→20:40)
[2018-05-13] MEDS: Furosemide 40 MG TABLET PO SCH (08:16)
[2018-05-13 08:17] LABS: Basophils % 0.1 %; Eosinophils # 0.4 K/mcL (0.0-0.6); Eosinophils % 4.7 %; Hematocrit 24.9 % (37.5-50.1); Hemoglobin 8.1 g/dL (12.9-16.9); Lymphocytes # 0.9 K/mcL (0.6-4.6); Lymphocytes % 11.1 %; Mean Corpuscular HGB Conc 32.5 g/dL (31.6-35.5); Mean Corpuscular Hemoglobin 30.7 pg (28.0-33.3); Mean Corpuscular Volume 94.3 fL (83.0-100.0); Mean Platelet Volume 9.5 fL (9.4-12.4); Monocytes # 0.6 K/mcL (0.0-1.3); Monocytes % 7.9 %; Neutrophils # 5.7 K/mcL (1.6-8.9); Platelet Count 234 K/mcL (140-400); Red Blood Count 2.64 M/mcL (4.19-5.50); Red Cell Distribution Width 14.1 % (11.5-14.5); Segmented Neutrophils % 75.2 %
[2018-05-13] MEDS: Insulin DETEMIR 100 UNIT/ML X5UNITS SQ SCH ×2 (08:19→20:42)
[2018-05-13 08:37] LABS: BUN/Creatinine Ratio 18 (6-26); Blood Urea Nitrogen 22 mg/dL (8-23); Calcium 8.2 mg/dL (8.6-10.3); Carbon Dioxide 25 mEq/L (23-29); Chloride 104 mEq/L (98-107); Glucose 154 mg/dL (70-105); Osmolality,Calculated 288 (280-300); Potassium 3.5 mEq/L (3.5-5.1); Sodium 136 mEq/L (136-145); eGFR For Non-African Americans 59 (> 60)
--- NOTE | 2018-05-13 14:17 | General Surgery Progress Note ---
Date of Encounter: 05/13/18 Time of Encounter: 14:04 Subjective Patient reports: feels better, pain is less, tolerating liquids well Narrative: General Surgery - POD #4 Patient feeling well, denies abdominal pain as [employer] Dilaudid has been very effective. Patient remains afebrile, currently 97.6, pulse ranging 73-88, respiratory rate 15-19, blood pressure 127/68; SPO2 on room air 97% Lungs: Clear, no abdominal pain and deep inspiration Abdomen: Soft, nontender. Midline incision intact, healing well. No detected fascial defects. Active bowel sounds. Stoma site left lower quadrant also intact, clean and dry. JESIKA output 110 mL serosanguineous fluid in the last 24 hours; 40 mL so far today Stoma right upper quadrant - still dark but appears viable; copious passage of flatus; no BM Urine output: 1900 mL for calendar day 05/12/18; 1700 mL so far today. Laboratories: White count 7.6, neutrophils have returned to normal at 5.7; hemoglobin 8.1, hematocrit 24.9 - most likely dilution Electrolytes, BUN, creatinine within normal limits, BUN has improved to 22, creatinine 1.21 Impression: Postoperative day #4, status post revision/relocation and colostomy left lower quadrant to right upper quadrant along with repair of large peristomal hernia with mesh. Acceptable postoperative status The new stoma appears healthy and is beginning to function. Diabetes: Accu-Cheks 108-157 - significantly improved control. Plan: Advance diet (diabetic diet) discontinue [employer] and IV fluids Remove Banegas in a.m. Objective Vital Signs - Last 8 Hours Temp Pulse Resp BP Pulse Ox 05/13/18 11:31 97.6 F 73 18 127/68 97 05/13/18 07:00 98.1 F 86 19 164/76 95 Intake and Output 05/12/18 05/13/18 05/13/18 23:59 07:59 15:59 Intake Total 1190 / 1190 0 / 0 945 / 945 Output Total 830 / 830 450 / 450 1305 / 1305 Balance 360 / 360 -450 / -450 -360 / -360 Intake: IV Fluids 470 / 470 675 / 675 D5% And 0.45% Nacl 1000 Ml Bag 470 / 470 675 / 675 1,000 ML @ 50 mls/hr IVC .Q20H [facility] Rx#:[id number] Oral 720 / 720 0 / 0 270 / 270 Output: Stool 15 15 Catheter 800 / 800 450 / 450 1250 / 1250 Urethral (Banegas) 300 / 300 300 / 300 Wound Drainage 40 / 40 Left Lower Abdomen Other: Stool Consistency liquid Stool Color Dark Red Blood # Bowel Movements 0 0 Weight 117.2 kg Blood Glucose* 115 108 144 Patient Weight 05/13/18 23:59 Weight 117.2 kg - Labs 05/13/18 07:03 05/13/18 07:03 Diabetes panel 05/13/18 Range/Units 07:03 Sodium 136 (136-145) mEq/L Potassium 3.5 (3.5-5.1) mEq/L Chloride 104 (98-107) mEq/L Carbon Dioxide 25 (23-29) mEq/L BUN 22 (8-23) mg/dL Creatinine 1.21 (0.70-1.30) mg/dL Glucose 154 H (70-105) mg/dL Calcium 8.2 L (8.6-10.3) mg/dL Calcium panel 05/13/18 Range/Units 07:03 Calcium 8.2 L (8.6-10.3) mg/dL Pituitary panel 05/13/18 Range/Units 07:03 Sodium 136 (136-145) mEq/L Potassium 3.5 (3.5-5.1) mEq/L Chloride 104 (98-107) mEq/L Carbon Dioxide 25 (23-29) mEq/L BUN 22 (8-23) mg/dL Creatinine 1.21 (0.70-1.30) mg/dL Glucose 154 H (70-105) mg/dL Calcium 8.2 L (8.6-10.3) mg/dL Adrenal panel 05/13/18 Range/Units 07:03 Sodium 136 (136-145) mEq/L Potassium 3.5 (3.5-5.1) mEq/L Chloride 104 (98-107) mEq/L Carbon Dioxide 25 (23-29) mEq/L BUN 22 (8-23) mg/dL Creatinine 1.21 (0.70-1.30) mg/dL Glucose 154 H (70-105) mg/dL Calcium 8.2 L (8.6-10.3) mg/dL Consult Discharge Plan - Plan Referrals: Idris Felix MD [Non-Partnered Physician] - Spencer Quezada Jr, MD [Primary Care Provider] -
[2018-05-13] MEDS ORDERED: *HR* OxyCODONE Immed Rel 5 MG TABLET PO PRN (14:18)
[2018-05-13] MEDS ORDERED: Furosemide 40 MG/4 ML VIAL IVP ONE (18:00)
[2018-05-13] MEDS: Acetaminophen 325 MG TABLET PO PRN (20:40)
[2018-05-13] MEDS: Latanoprost 2.5 ML BOTTLE BOTH EYES SCH (20:43)
[2018-05-14] MEDS: Insulin LISPRO 300 UNITS/3 ML VIAL SQ SCH ×7 (00:01→21:25)
[2018-05-14 05:12] LABS: Hemoglobin 8.4 g/dL (12.9-16.9)
[2018-05-14] MEDS: *HR* Metformin 500 MG TABLET PO SCH ×2 (07:54→16:44)
[2018-05-14] MEDS: Furosemide 40 MG TABLET PO SCH (07:55)
[2018-05-14] MEDS: Insulin DETEMIR 100 UNIT/ML X5UNITS SQ SCH ×2 (07:55→21:30)
[2018-05-14] MEDS: Doxycycline 100 MG CAPSULE PO SCH ×2 (07:55→21:26)
[2018-05-14] MEDS: Metoprolol 100 MG TABLET PO SCH ×2 (07:56→21:25)
[2018-05-14] MEDS: Lisinopril 20 MG TABLET PO SCH (07:57)
[2018-05-14] MEDS: Acetaminophen 325 MG TABLET PO PRN ×2 (07:58→16:44)
--- NOTE | 2018-05-14 13:16 | General Surgery Progress Note ---
Date of Encounter: 05/14/18 Time of Encounter: 13:10 Subjective Patient reports: feels better, tolerating a regular diet Narrative: General Surgery - POD #5 Patient feeling well, tolerating regular diet without increased abdominal distention, cramping abdominal pain or nausea or vomiting Banegas catheter removed this morning - patient concerned as he has significant prostatic hypertrophy and obstructive uropathy Afebrile, vital signs stable- temp 98.0, pulse 78,RR 15, BP 96/58, however, through the night 151/79-168/91 Lungs: Clear Abdomen: Soft, with active bowel sounds. Small BM via the newly located stoma in the right upper quadrant. Patient continues to pass flatus. No significant abdominal tenderness. Midline incision intact. Stoma site left lower quadrant appears intact and healing well. JESIKA output 70 mL serosanguineous fluid so far today. Laboratories: Hemoglobin 8.4, hematocrit 26.0, slightly improved with mobilization/diuresis of fluids Impression: Postoperative day #5, status post revision/relocation stoma from left lower quadrant to right upper quadrant with repair of peristomal hernia with mesh. Acceptable postoperative status. Postop anemia Diabetes- Accu-Cheks 97 - 176 Objective Vital Signs - Last 8 Hours Temp Pulse Resp BP Pulse Ox 05/14/18 10:28 98.0 F 78 15 96/58 98 05/14/18 08:47 95 05/14/18 06:49 97.9 F 80 14 168/91 95 Intake and Output 05/13/18 05/14/18 05/14/18 23:59 07:59 15:59 Intake Total 325 / 325 120 / 120 120 / 120 Output Total 1840 / 1840 455 / 455 150 / 150 Balance -1515 / -1515 -335 / -335 -30 / -30 Intake: IV Fluids 325 / 325 D5% And 0.45% Nacl 1000 Ml Bag 325 / 325 1,000 ML @ 50 mls/hr IVC .Q20H [facility] Rx#:[id number] Oral 0 / 0 120 / 120 120 / 120 Output: Stool 200 / 200 100 / 100 Catheter 1625 / 1625 425 / 425 Urethral (Banegas) 250 / 250 Gastric Drainage 10 / 10 Wound Drainage 20 20 50 / 50 Left Lower Abdomen 50 / 50 Other: Meal Breakfast Percent of Meal Consumed 100% Weight 116.1 kg Blood Glucose* 97 97 245 Patient Weight 05/14/18 23:59 Weight 116.1 kg - Labs 05/14/18 04:42 05/13/18 07:03 Consult Discharge Plan - Plan Referrals: Idris Felix MD [Non-Partnered Physician] - Spencer Quezada Jr, MD [Primary Care Provider] -
[2018-05-14] MEDS: Latanoprost 2.5 ML BOTTLE BOTH EYES SCH (21:27)
[2018-05-15] MEDS: Insulin LISPRO 300 UNITS/3 ML VIAL SQ SCH ×4 (04:35→11:51)
[2018-05-15 05:54] LABS: Basophils % 0.2 %; Eosinophils # 0.3 K/mcL (0.0-0.6); Hematocrit 25.5 % (37.5-50.1); Hemoglobin 8.5 g/dL (12.9-16.9); Lymphocytes # 0.9 K/mcL (0.6-4.6); Lymphocytes % 10.4 %; Mean Corpuscular HGB Conc 33.3 g/dL (31.6-35.5); Mean Corpuscular Hemoglobin 30.8 pg (28.0-33.3); Mean Corpuscular Volume 92.4 fL (83.0-100.0); Mean Platelet Volume 9.1 fL (9.4-12.4); Monocytes # 0.7 K/mcL (0.0-1.3); Monocytes % 7.8 %; Neutrophils # 6.8 K/mcL (1.6-8.9); Platelet Count 270 K/mcL (140-400); Red Blood Count 2.76 M/mcL (4.19-5.50); Red Cell Distribution Width 13.7 % (11.5-14.5); Segmented Neutrophils % 77.6 %
[2018-05-15 06:15] LABS: BUN/Creatinine Ratio 21 (6-26); Blood Urea Nitrogen 25 mg/dL (8-23); Calcium 8.2 mg/dL (8.6-10.3); Carbon Dioxide 26 mEq/L (23-29); Chloride 100 mEq/L (98-107); Glucose 174 mg/dL (70-105); Osmolality,Calculated 287 (280-300); Potassium 3.6 mEq/L (3.5-5.1); Sodium 134 mEq/L (136-145); eGFR For Non-African Americans 60 (> 60)
[2018-05-15] MEDS: Doxycycline 100 MG CAPSULE PO SCH (08:02)
[2018-05-15] MEDS: *HR* Metformin 500 MG TABLET PO SCH (08:02)
[2018-05-15] MEDS: Insulin DETEMIR 100 UNIT/ML X5UNITS SQ SCH (08:03)
[2018-05-15] MEDS: Furosemide 40 MG TABLET PO SCH (08:03)
[2018-05-15] MEDS: Metoprolol 100 MG TABLET PO SCH (08:04)
[2018-05-15] MEDS: Acetaminophen 325 MG TABLET PO PRN (08:05)
[2018-05-15] MEDS: Lisinopril 20 MG TABLET PO SCH (08:05)
[2018-05-15 10:51] VITALS: BP 134/69
--- NOTE | 2018-05-15 12:05 | Discharge Summary ---
Outpatient Proc Discharge Plan - Plan Additional Instructions: Regular (diabetic) diet Activity as tolerated; lifting limited less than 20 pounds Patient may shower, wash incisions and ostomy sites with soap and water Patient to resume home meds Prescription for Percocet 5/325, #12, one every 6-8 hours as needed for pain not relieved by [id number] medications Outpatient surgical follow-up, 05/21/18. Prescriptions: OxyCODONE/APAP 5/325 [Percocet 5/325 MG] 1 each PO Q8H PRN 4 Days #12 tablet PRN Reason: incision pain Home Medications: Ascorbate Calcium [Vitamin C] 500 mg PO BID 04/24/15 [History] Doxycycline 100 mg PO BID 04/24/15 [History] Ferrous Sulfate [Iron] 325 mg PO BID 04/24/15 [History] Finasteride [Proscar] 5 mg PO DAILY 04/24/15 [History] Furosemide [Lasix] 40 mg PO BID 04/24/15 [History] Insulin ASPART [NovoLOG] 12 - 18 unit SQ TIDWM 04/24/15 [History] Levothyroxine Sodium [Tirosint] 150 mcg PO HS 04/24/15 [History] Simvastatin [Zocor] 40 mg PO QPM 04/24/15 [History] Tamsulosin [Flomax] 0.4 mg PO DAILY 04/24/15 [History] Vitamin E (Dl,Tocopheryl Acet) [Vitamin E] 400 unit PO DAILY 04/24/15 [History] Aspirin [Lo-Dose Aspirin EC] 81 mg PO DAILY 04/25/16 [History] Insulin DETEMIR [Levemir Flextouch] 57 unit SQ HS 04/25/16 [History] Latanoprost [Xalatan] 1 drop BOTH EYES HS 04/25/16 [History] Calcium Carbonate [Calcium] 300 mg PO BID 06/23/17 [History] Hollywood-3/Dha/Epa/Fish Oil [Fish Oil 1,000 mg Softgel] 1 cap PO DAILY 06/23/17 [Hi story] Fluocinonide 1 - 2 applic TP BID PRN 03/21/18 [History] Lisinopril [Zestril] 40 mg PO DAILY 03/21/18 [History] Metformin HCl 1,000 mg PO BID 03/21/18 [History] Metoprolol Tartrate 50 mg PO BID 03/21/18 [History] Timolol Maleate 0.5% 1 drop BOTH EYES DAILY 03/21/18 [History] Acetaminophen [Tylenol] 650 mg PO Q6HR PRN tablet 05/15/18 [Rx] OxyCODONE/APAP 5/325 [Percocet 5/325 MG] 1 each PO Q8H PRN 4 Days #12 tablet 05/15/18 [Rx]
--- NOTE | 2018-05-15 12:54 | General Surgery Progress Note ---
Date of Encounter: 05/15/18 Time of Encounter: 12:00 Subjective Patient reports: feels better, tolerating a regular diet Narrative: General Surgery - POD # 6 Progress Note / Discharge Summary Patient feeling well, voicing no complaints. Tolerating regular diet without abdominal distention, nausea/vomiting, or increased abdominal pain Afebrile, hemodynamically stable - 97.6, pulse 80 (range 64-101); respiratory rate 16 (range 15-18); blood pressure 134/69 Lungs: Clear, no abdominal pain on deep inspiration Abdomen: Soft, nontender. Midline incision intact, clean and dry Former ostomy site in the left lower quadrant - clean, intact and healing well. Peristomal hernia repair in the left lower quadrant also appears to be intact and healing well JESIKA drainage of the peristomal hernia site has diminished to serous fluid, approximately 25 mL so far today. Drain removed. The new stoma right upper quadrant appears to be healthy, intact, and is functioning properly. Laboratories: White count 8.8, hemoglobin 8.5 with hematocrit 25.8. Differential within normal limits Electrolytes notable for sodium 134; BUN 25, creatinine 1.20 Impression: Postoperative day #6, status post revision and relocation and colostomy from left lower quadrant to right upper quadrant. This was due to a large peristomal hernia containing small and large bowel. The bowel was mobilized along with the end colostomy, the hernia defect was repaired with a Bard 13 x 25 cm PhasixST mesh prosthesis and the end colostomy moved to the right upper quadrant. The patient has made a slow but steady recovery since surgery 05/09/18. There was transient renal insufficiency which responded to IV fluids. Hemoglobin/hematocrit fell from 11.4/34.7 to current level 8.5/25.8 - partially due to intraoperative blood loss is but also due to dilution related to Perioperative fluids administered for surgery and the subsequent postoperative renal insufficiency. The patient's diabetes was controlled with every 4 hours sliding scale coverage Diet was reinitiated as postoperative bowel function returned and the relocated stoma began to function. The patient was discharged home in good physical condition with instructions to resume his usual diet and home medications Outpatient follow-up, 05/21/18 Diagnoses: History of rectal cancer 2006. Status post abdominal perineal resection with end colostomy left lower quadrant Large peristomal hernia that ultimately required repair with mesh prosthesis and relocation of the end colostomy to the right upper quadrant Chronic osteomyelitis Diabetes mellitus CAD with history of [place] Hyperlipidemia Postoperative anemia - partially due to acute blood loss during surgery and dilution due to juan operative fluids Prostate nausea with obstructive uropathy - stable Chronic hip and back pain Objective Vital Signs - Last 8 Hours Temp Pulse Resp BP Pulse Ox 05/15/18 10:50 97.6 F 80 16 134/69 98 05/15/18 06:40 98.0 F 64 18 136/70 96 Intake and Output 05/14/18 05/15/18 05/15/18 23:59 07:59 15:59 Intake Total 120 / 120 120 / 120 460 / 460 Output Total 1340 / 1340 150 / 150 175 / 175 Balance -1220 / -1220 -30 / -30 285 / 285 Intake: Oral 120 / 120 120 / 120 460 / 460 Output: Urine 650 / 650 150 / 150 150 / 150 Stool 650 / 650 Wound Drainage 40 / 40 25 / 25 Left Lower Abdomen 40 / 40 25 / Other: Meal Dinner Breakfast Percent of Meal Consumed 75% 100% Weight 116.1 kg Blood Glucose* 234 122 208 Patient Weight 05/15/18 23:59 Weight 116.1 kg - Labs 05/15/18 05:29 05/15/18 05:29 Diabetes panel 05/15/18 Range/Units 05:29 Sodium 134 L (136-145) mEq/L Potassium 3.6 (3.5-5.1) mEq/L Chloride 100 (98-107) mEq/L Carbon Dioxide 26 (23-29) mEq/L BUN 25 H (8-23) mg/dL Creatinine 1.20 (0.70-1.30) mg/dL Glucose 174 H (70-105) mg/dL Calcium 8.2 L (8.6-10.3) mg/dL Calcium panel 05/15/18 Range/Units 05:29 Calcium 8.2 L (8.6-10.3) mg/dL Pituitary panel 05/15/18 Range/Units 05:29 Sodium 134 L (136-145) mEq/L Potassium 3.6 (3.5-5.1) mEq/L Chloride 100 (98-107) mEq/L Carbon Dioxide 26 (23-29) mEq/L BUN 25 H (8-23) mg/dL Creatinine 1.20 (0.70-1.30) mg/dL Glucose 174 H (70-105) mg/dL Calcium 8.2 L (8.6-10.3) mg/dL Adrenal panel 05/15/18 Range/Units 05:29 Sodium 134 L (136-145) mEq/L Potassium 3.6 (3.5-5.1) mEq/L Chloride 100 (98-107) mEq/L Carbon Dioxide 26 (23-29) mEq/L BUN 25 H (8-23) mg/dL Creatinine 1.20 (0.70-1.30) mg/dL Glucose 174 H (70-105) mg/dL Calcium 8.2 L (8.6-10.3) mg/dL Consult Discharge Plan - Plan Additional Instructions: Regular (diabetic) diet Activity as tolerated; lifting limited less than 20 pounds Patient may shower, wash incisions and ostomy sites with soap and water Patient to resume home meds Prescription for Percocet 5/325, #12, one every 6-8 hours as needed for pain not relieved by [id number] medications Outpatient surgical follow-up, 05/21/18. Referrals: Idris Felix MD [Non-Partnered Physician] - 05/21/18 2:20 pm Prescriptions: OxyCODONE/APAP 5/325 [Percocet 5/325 MG] 1 each PO Q8H PRN 4 Days #12 tablet PRN Reason: incision pain
== END 2018-05-15 12:50 | disposition home or self-care (01) | DRG 330 ==
LOC: SAMDAY 09:08 → 3ANU 17:52
PROVIDERS: ADMIT Surgery; ATTEND Surgery

== ENCOUNTER 2019-05-22 09:12 | Inpatient (IN) ==
[2019-05-22] MEDS ORDERED: Ringers Solution, Lactated 1,000 ML IVC SCH ×2 (10:00→10:15)
[2019-05-22] MEDS ORDERED: Acetaminophen IV 1,000 MG/100 ML INFUS..BTL IVPB ONE (10:01)
[2019-05-22] MEDS ORDERED: Ondansetron 4 MG/2 ML VIAL IVP ONE (10:01)
[2019-05-22] MEDS ORDERED: *HR* OxyCODONE Immed Rel 5 MG TABLET PO PRN (10:01)
[2019-05-22] MEDS ORDERED: *HR* FentaNYL (PF) 100 MCG/2 ML VIAL ONE (10:29)
[2019-05-22] MEDS ORDERED: *HR* Propofol 200 MG/20 ML VIAL IVP ONE (10:29)
[2019-05-22] MEDS ORDERED: Lidocaine -MPF 2% 2 ML VIAL ONE (10:30)
[2019-05-22] MEDS ORDERED: *HR* Rocuronium Bromide 50 MG/5 ML VIAL ONE ×2 (10:30→13:59)
[2019-05-22] MEDS ORDERED: Bupivacaine/EPI 1:200k 0.25%PF 10 ML VIAL INFILT ONE (12:19)
[2019-05-22] MEDS ORDERED: Ondansetron 4 MG/2 ML VIAL ONE (12:29)
[2019-05-22] MEDS ORDERED: Neostigmine Methylsulfate 3 MG/3 ML SYRINGE ONE (12:55)
[2019-05-22] MEDS ORDERED: *HR* HYDROMORPHONE 2 MG/ML VIAL ONE (13:59)
[2019-05-22] MEDS ORDERED: Acetaminophen 325 MG TABLET PO PRN ×2 (14:01→17:33)
[2019-05-22] MEDS ORDERED: *HR* OxyCODONE/APAP 10/325 TABLET PO PRN (14:01)
[2019-05-22] MEDS: *HR* HYDROmorphone (PF) 1 MG/ML SYRINGE IVP PRN ×3 (14:25→14:37)
[2019-05-22 18:23] LABS: Hemoglobin 11.7 g/dL (12.9-16.9)
[2019-05-22] MEDS: Ringers Solution, Lactated 1,000 ML IVC SCH (19:01)
[2019-05-22] MEDS: *HR* OxyCODONE/APAP 10/325 TABLET PO PRN (22:13)
[2019-05-22] MEDS: Doxycycline 100 MG CAPSULE PO SCH (22:13)
[2019-05-23] MEDS: Latanoprost 2.5 ML BOTTLE BOTH EYES SCH ×2 (02:26→22:11)
[2019-05-23] MEDS: Insulin DETEMIR 100 UNIT/ML X5UNITS SQ SCH ×2 (02:26→22:11)
[2019-05-23] MEDS: Ringers Solution, Lactated 1,000 ML IVC SCH (04:35)
[2019-05-23 05:20] LABS: Basophils % 0.1 %; Eosinophils % 0.1 %; Hematocrit 35.3 % (37.5-50.1); Hemoglobin 11.9 g/dL (12.9-16.9); Immature Granulocytes % 0.5 % (0-4); Lymphocytes # 0.6 K/mcL (0.6-4.6); Mean Corpuscular HGB Conc 33.7 g/dL (31.6-35.5); Mean Corpuscular Hemoglobin 31.7 pg (28.0-33.3); Mean Corpuscular Volume 94.1 fL (83.0-100.0); Mean Platelet Volume 10.1 fL (9.4-12.4); Monocytes # 1.1 K/mcL (0.0-1.3); Neutrophils # 10.2 K/mcL (1.6-8.9); Platelet Count 231 K/mcL (140-400); Red Blood Count 3.75 M/mcL (4.19-5.50); Red Cell Distribution Width 12.8 % (11.5-14.5); Segmented Neutrophils % 85.3 %; White Blood Count 11.9 K/mcL (4.3-11.1)
[2019-05-23 05:38] LABS: BUN/Creatinine Ratio 18 (6-26); Blood Urea Nitrogen 21 mg/dL (8-23); Calcium 8.3 mg/dL (8.6-10.3); Carbon Dioxide 24 mEq/L (23-29); Chloride 101 mEq/L (98-107); Glucose 272 mg/dL (70-105); Osmolality,Calculated 293 (280-300); Potassium 4.7 mEq/L (3.5-5.1); Sodium 135 mEq/L (136-145); eGFR For African Americans > 60 (> 60); eGFR For Non-African Americans > 60 (> 60)
[2019-05-23] MEDS: *HR* Metformin 500 MG TABLET PO SCH ×2 (08:30→17:38)
[2019-05-23] MEDS: Lisinopril 20 MG TABLET PO SCH (08:30)
[2019-05-23] MEDS: Doxycycline 100 MG CAPSULE PO SCH ×2 (08:30→22:04)
[2019-05-23] MEDS: Ondansetron 4 MG/2 ML VIAL IVP PRN ×2 (12:15→17:38)
[2019-05-23] MEDS: Furosemide 40 MG TABLET PO SCH ×2 (14:02→17:38)
[2019-05-23] MEDS: Insulin LISPRO 300 UNITS/3 ML VIAL SQ SCH (17:39)
[2019-05-23] MEDS: *HR* OxyCODONE/APAP 10/325 TABLET PO PRN (22:04)
[2019-05-24 05:05] LABS: Basophils % 0.2 %; Eosinophils # 0.1 K/mcL (0.0-0.6); Eosinophils % 0.4 %; Hematocrit 30.3 % (37.5-50.1); Immature Granulocytes % 0.5 % (0-4); Lymphocytes # 0.9 K/mcL (0.6-4.6); Lymphocytes % 7.9 %; Mean Corpuscular HGB Conc 33.3 g/dL (31.6-35.5); Mean Corpuscular Hemoglobin 31.4 pg (28.0-33.3); Mean Corpuscular Volume 94.1 fL (83.0-100.0); Mean Platelet Volume 9.9 fL (9.4-12.4); Monocytes % 9.1 %; Neutrophils # 9.3 K/mcL (1.6-8.9); Platelet Count 194 K/mcL (140-400); Red Blood Count 3.22 M/mcL (4.19-5.50); Red Cell Distribution Width 12.9 % (11.5-14.5); Segmented Neutrophils % 81.9 %; White Blood Count 11.4 K/mcL (4.3-11.1)
[2019-05-24 05:06] LABS: Hemoglobin 10.1 g/dL (12.9-16.9)
[2019-05-24] MEDS: Furosemide 40 MG TABLET PO SCH ×2 (08:48→17:10)
[2019-05-24] MEDS: *HR* Metformin 500 MG TABLET PO SCH ×2 (08:48→17:10)
[2019-05-24] MEDS: Lisinopril 20 MG TABLET PO SCH (08:49)
[2019-05-24] MEDS: Doxycycline 100 MG CAPSULE PO SCH ×2 (08:49→20:37)
[2019-05-24] MEDS: Insulin LISPRO 300 UNITS/3 ML VIAL SQ SCH ×3 (08:49→17:10)
[2019-05-24] MEDS: *HR* OxyCODONE/APAP 10/325 TABLET PO PRN (20:37)
[2019-05-24] MEDS: Insulin DETEMIR 100 UNIT/ML X5UNITS SQ SCH (20:37)
[2019-05-24] MEDS: Ondansetron 4 MG/2 ML VIAL IVP PRN (20:38)
[2019-05-24] MEDS: Latanoprost 2.5 ML BOTTLE BOTH EYES SCH (20:42)
[2019-05-25 07:38] LABS: Basophils % 0.2 %; Eosinophils # 0.2 K/mcL (0.0-0.6); Eosinophils % 1.8 %; Hematocrit 28.5 % (37.5-50.1); Hemoglobin 9.3 g/dL (12.9-16.9); Immature Granulocytes % 0.6 % (0-4); Lymphocytes # 0.9 K/mcL (0.6-4.6); Lymphocytes % 8.4 %; Mean Corpuscular HGB Conc 32.6 g/dL (31.6-35.5); Mean Corpuscular Volume 97.9 fL (83.0-100.0); Mean Platelet Volume 10.1 fL (9.4-12.4); Monocytes % 9.2 %; Neutrophils # 8.4 K/mcL (1.6-8.9); Platelet Count 204 K/mcL (140-400); Red Blood Count 2.91 M/mcL (4.19-5.50); Red Cell Distribution Width 13.1 % (11.5-14.5); Segmented Neutrophils % 79.8 %; White Blood Count 10.5 K/mcL (4.3-11.1)
[2019-05-25] MEDS: Lisinopril 20 MG TABLET PO SCH (08:46)
[2019-05-25] MEDS: Doxycycline 100 MG CAPSULE PO SCH (08:46)
[2019-05-25] MEDS: *HR* Metformin 500 MG TABLET PO SCH (08:46)
[2019-05-25] MEDS: Furosemide 40 MG TABLET PO SCH (08:46)
[2019-05-25] MEDS: Insulin LISPRO 300 UNITS/3 ML VIAL SQ SCH ×2 (08:47→11:26)
[2019-05-25 10:32] VITALS: BP 119/71
[2019-05-25] MEDS ORDERED: *HR* OxyCODONE/APAP 5/325 TABLET PO PRN (11:29)
== END 2019-05-25 12:04 | disposition home or self-care (01) | DRG 337 ==
LOC: 3ANU 09:12 → SAMDAY 09:12 → 3ANU 16:59
PROVIDERS: ADMIT Surgery; ATTEND Surgery

== ENCOUNTER 2019-11-27 06:25 | Inpatient (IN) ==
[2019-11-27] MEDS ORDERED: CeFAZolin Syr 2,000MG/20 ML 2,000 MG/20 ML SYRINGE IVPB ONE (06:51)
[2019-11-27] MEDS ORDERED: Ringers Solution, Lactated 1,000 ML IVC SCH (07:00)
[2019-11-27] MEDS ORDERED: Bupivacaine/EPI 1:200k 0.25%PF 30 ML VIAL ONE (07:09)
[2019-11-27] MEDS ORDERED: Dexamethasone 4 MG/ML VIAL ONE (07:12)
[2019-11-27] MEDS ORDERED: *HR* Succinylcholine 200 MG/10 ML VIAL IVP ONE (07:12)
[2019-11-27] MEDS ORDERED: *HR* Rocuronium Bromide 50 MG/5 ML VIAL ONE (07:12)
[2019-11-27] MEDS ORDERED: Lidocaine -MPF 2% 2 ML VIAL ONE (07:12)
[2019-11-27] MEDS ORDERED: Ondansetron 4 MG/2 ML VIAL ONE (07:12)
[2019-11-27] MEDS ORDERED: *HR* FentaNYL (PF) 100 MCG/2 ML VIAL ONE (07:13)
[2019-11-27] MEDS ORDERED: *HR* Propofol 200 MG/20 ML VIAL IVP ONE (07:13)
[2019-11-27] MEDS ORDERED: Ondansetron 4 MG/2 ML VIAL IVP ONE (07:16)
[2019-11-27] MEDS ORDERED: *HR* OxyCODONE Immed Rel 5 MG TABLET PO PRN (07:16)
[2019-11-27] MEDS ORDERED: Doxycycline 100 MG CAPSULE PO STA (07:31)
[2019-11-27] MEDS ORDERED: EPHEDrine 50 MG/ML VIAL ONE (08:09)
[2019-11-27] MEDS ORDERED: *HR* PHENYLEPHRINE 1,000 MCG/10 ML SYRINGE IVP ONE (08:09)
[2019-11-27] MEDS: *HR* HYDROmorphone PF 0.5 MG/0.5 ML SYRINGE IVP PRN ×4 (10:25→10:50)
[2019-11-27] MEDS ORDERED: Dextrose Gel 15 GM/37.5 ML TUBE PO PRN ×2 (10:44→12:45)
[2019-11-27] MEDS ORDERED: D5% in Water 1,000 ML IVC PRN ×2 (10:44→12:45)
[2019-11-27] MEDS ORDERED: *HR* Dextrose 50 % in Water (Vial) 50 ML VIAL IVP PRN ×2 (10:44→12:45)
[2019-11-27] MEDS ORDERED: Insulin LISPRO 300 UNITS/3 ML VIAL SQ SCH (12:00)
[2019-11-27] MEDS ORDERED: *HR* HYDROmorphone (PF) 1 MG/ML SYRINGE IVP PRN (12:45)
[2019-11-27] MEDS ORDERED: *HR* Promethazine 25 MG/ML VIAL IVP PRN (12:45)
[2019-11-27] MEDS ORDERED: Acetaminophen 325 MG TABLET PO PRN (12:45)
[2019-11-27] MEDS ORDERED: Ondansetron 4 MG/2 ML VIAL IVP PRN (12:45)
[2019-11-27] MEDS: Insulin LISPRO 300 UNITS/3 ML VIAL SQ SCH ×3 (14:17→21:47)
[2019-11-27] MEDS: Ringers Solution, Lactated 1,000 ML IVC SCH (14:34)
[2019-11-27] MEDS: *HR* Metformin 500 MG TABLET PO SCH (17:33)
[2019-11-27] MEDS: Furosemide 40 MG TABLET PO SCH (17:33)
[2019-11-27] MEDS: Doxycycline 100 MG in 0.9 % Sodium Chloride Mini Bag 100 ML IVPB SCH (18:24)
[2019-11-27] MEDS ORDERED: Insulin DETEMIR 100 UNIT/ML X5UNITS SQ SCH ×2 (21:00)
[2019-11-27] MEDS: Latanoprost 2.5 ML BOTTLE BOTH EYES SCH (21:50)
[2019-11-27] MEDS: *HR* OxyCODONE Immed Rel 5 MG TABLET PO PRN (21:53)
[2019-11-28] MEDS: Insulin LISPRO 300 UNITS/3 ML VIAL SQ SCH ×6 (00:12→23:09)
[2019-11-28] MEDS: Ringers Solution, Lactated 1,000 ML IVC SCH (05:56)
[2019-11-28] MEDS: Doxycycline 100 MG in 0.9 % Sodium Chloride Mini Bag 100 ML IVPB SCH (05:56)
[2019-11-28 06:44] LABS: Basophils % 0.1 %; Hematocrit 32.5 % (37.5-50.1); Hemoglobin 10.5 g/dL (12.9-16.9); Immature Granulocytes % 0.7 % (0-4); Lymphocytes # 0.9 K/mcL (0.6-4.6); Mean Corpuscular HGB Conc 32.3 g/dL (31.6-35.5); Mean Corpuscular Hemoglobin 31.3 pg (28.0-33.3); Mean Corpuscular Volume 96.7 fL (83.0-100.0); Mean Platelet Volume 10.1 fL (9.4-12.4); Monocytes # 1.4 K/mcL (0.0-1.3); Monocytes % 10.9 %; Neutrophils # 10.5 K/mcL (1.6-8.9); Platelet Count 233 K/mcL (140-400); Red Blood Count 3.36 M/mcL (4.19-5.50); Red Cell Distribution Width 13.1 % (11.5-14.5); Segmented Neutrophils % 81.3 %; White Blood Count 12.9 K/mcL (4.3-11.1)
[2019-11-28 07:06] LABS: Calcium 8.5 mg/dL (8.6-10.3); Potassium 4.6 mEq/L (3.5-5.1)
[2019-11-28] MEDS: Aspirin Enteric Coated 81 MG Tablet PO SCH (08:12)
[2019-11-28] MEDS: Finasteride 5 MG TABLET PO SCH (08:12)
[2019-11-28] MEDS: lisinopriL 20 MG TABLET PO SCH (08:12)
[2019-11-28] MEDS: *HR* Metformin 500 MG TABLET PO SCH ×2 (08:12→17:34)
[2019-11-28] MEDS: Furosemide 40 MG TABLET PO SCH ×2 (08:12→17:34)
[2019-11-28] MEDS ORDERED: lisinopriL 20 MG TABLET PO SCH (09:00)
[2019-11-28] MEDS: Insulin DETEMIR 100 UNIT/ML X5UNITS SQ SCH ×2 (14:53→23:09)
[2019-11-28] MEDS: Doxycycline 100 MG CAPSULE PO SCH (17:34)
[2019-11-28] MEDS: *HR* Heparin 5,000 UNIT/ML VIAL SQ SCH (17:35)
[2019-11-28] MEDS: *HR* OxyCODONE Immed Rel 5 MG TABLET PO PRN (20:37)
[2019-11-28] MEDS: Latanoprost 2.5 ML BOTTLE BOTH EYES SCH (23:08)
[2019-11-29] MEDS: *HR* Heparin 5,000 UNIT/ML VIAL SQ SCH ×2 (05:21→18:16)
[2019-11-29] MEDS: Doxycycline 100 MG CAPSULE PO SCH ×2 (05:22→18:16)
[2019-11-29 06:08] LABS: Basophils % 0.2 %; Eosinophils # 0.1 K/mcL (0.0-0.6); Eosinophils % 0.5 %; Hematocrit 29.5 % (37.5-50.1); Hemoglobin 9.3 g/dL (12.9-16.9); Immature Granulocytes % 0.5 % (0-4); Lymphocytes # 0.9 K/mcL (0.6-4.6); Lymphocytes % 7.8 %; Mean Corpuscular HGB Conc 31.5 g/dL (31.6-35.5); Mean Corpuscular Hemoglobin 31.1 pg (28.0-33.3); Mean Corpuscular Volume 98.7 fL (83.0-100.0); Mean Platelet Volume 10.5 fL (9.4-12.4); Monocytes # 1.4 K/mcL (0.0-1.3); Monocytes % 12.2 %; Platelet Count 198 K/mcL (140-400); Red Blood Count 2.99 M/mcL (4.19-5.50); Red Cell Distribution Width 13.2 % (11.5-14.5); Segmented Neutrophils % 78.8 %; White Blood Count 11.4 K/mcL (4.3-11.1)
[2019-11-29 06:24] LABS: Magnesium 1.6 mg/dL (1.6-2.6); Phosphorous 2.7 mg/dL (2.7-4.5)
[2019-11-29] MEDS: *HR* Metformin 500 MG TABLET PO SCH ×2 (08:42→18:16)
[2019-11-29] MEDS: Aspirin Enteric Coated 81 MG Tablet PO SCH (08:42)
[2019-11-29] MEDS: Furosemide 40 MG TABLET PO SCH ×2 (08:42→18:16)
[2019-11-29] MEDS: Finasteride 5 MG TABLET PO SCH (08:42)
[2019-11-29] MEDS: Insulin LISPRO 300 UNITS/3 ML VIAL SQ SCH ×4 (08:43→21:21)
[2019-11-29] MEDS: Insulin DETEMIR 100 UNIT/ML X5UNITS SQ SCH ×2 (08:47→21:21)
[2019-11-29] MEDS: lisinopriL 20 MG TABLET PO SCH (08:48)
[2019-11-29] MEDS: *HR* OxyCODONE Immed Rel 5 MG TABLET PO PRN (19:51)
[2019-11-29] MEDS: Latanoprost 2.5 ML BOTTLE BOTH EYES SCH (21:21)
[2019-11-30] MEDS: *HR* Heparin 5,000 UNIT/ML VIAL SQ SCH (05:24)
[2019-11-30] MEDS: Doxycycline 100 MG CAPSULE PO SCH (05:24)
[2019-11-30 07:48] LABS: Basophils % 0.1 %; Eosinophils # 0.2 K/mcL (0.0-0.6); Eosinophils % 1.7 %; Hematocrit 27.7 % (37.5-50.1); Hemoglobin 8.9 g/dL (12.9-16.9); Immature Granulocytes % 0.6 % (0-4); Lymphocytes # 0.8 K/mcL (0.6-4.6); Lymphocytes % 8.4 %; Mean Corpuscular HGB Conc 32.1 g/dL (31.6-35.5); Mean Corpuscular Hemoglobin 31.8 pg (28.0-33.3); Mean Corpuscular Volume 98.9 fL (83.0-100.0); Mean Platelet Volume 10.2 fL (9.4-12.4); Monocytes % 10.3 %; Neutrophils # 7.5 K/mcL (1.6-8.9); Platelet Count 203 K/mcL (140-400); Red Cell Distribution Width 13.2 % (11.5-14.5); Segmented Neutrophils % 78.9 %; White Blood Count 9.5 K/mcL (4.3-11.1)
[2019-11-30] MEDS: *HR* Metformin 500 MG TABLET PO SCH (07:49)
[2019-11-30] MEDS: Insulin LISPRO 300 UNITS/3 ML VIAL SQ SCH ×2 (07:49→12:23)
[2019-11-30] MEDS: Furosemide 40 MG TABLET PO SCH (07:49)
[2019-11-30 08:00] LABS: Calcium 8.5 mg/dL (8.6-10.3); Potassium 3.8 mEq/L (3.5-5.1)
[2019-11-30] MEDS: Aspirin Enteric Coated 81 MG Tablet PO SCH (09:47)
[2019-11-30] MEDS: Finasteride 5 MG TABLET PO SCH (09:47)
[2019-11-30] MEDS: lisinopriL 20 MG TABLET PO SCH (09:48)
[2019-11-30] MEDS: Insulin DETEMIR 100 UNIT/ML X5UNITS SQ SCH (10:47)
[2019-11-30 11:14] VITALS: BP 101/62
== END 2019-11-30 12:50 | disposition home or self-care (01) | DRG 355 ==
LOC: SAMDAY 06:25 → 3ANU 12:38
PROVIDERS: ADMIT Surgery; ATTEND Surgery